=== PATIENT | male | born 1930 | race Caucasian/White ===

== ENCOUNTER 2017-04-15 08:45 | Outpatient (RCR) | payer MEDICARE ==
[~2017-04-15 08:45] MED LIST: ASPI-757 PO; ASPI81TA94 PO; CEPH-13 PO; CET10 PO; CLOP75TA PO; COUMADIN; DICY10CA11 PO; DILT300C41 PO; DILT300T11 PO; DOC100 PO; DOXY50SY2 PO; HYDR-385 PO; HYDR-393 PO; HYDROCODONE; HYDROCODONE PO; ISOS30TA PO; LOR5 PO; LOR5/325 PO; LORTAB 10/325MG PO; MELO-205 PO; METH5 PO; METO25TA91 PO; OMEP-125 PO; OMEP40CA48 PO; ONDA4TAB PO; OXYC-865 PO; PANT40TA65 PO; PHENA200 PO; PRAV40TA78 PO; RANI-320 PO; RANI-324 PO; TRA50 PO; TRAM-420 PO
[2017-04-15 09:58] LABS: INR 1.09
[2017-04-16] VITALS (7 sets, daily range): BP systolic 115–151; BP diastolic 63–93
[2017-04-16] MEDS ORDERED: IOPAMIDOL 20 ML VIAL IT ONE (09:01)
[2017-04-16] MEDS ORDERED: NS 0.9% 20 ML SDV 20 ML ONE (09:07)
--- NOTE | 2017-04-16 12:08 | RADIOLOGY IMAGING REPORT ---
FACILITY: [facility] PATIENT NAME: Abhijit Young : 1930 MR: [id number] V: [id number] EXAM DATE: ORDERING PHYSICIAN: DESTIN BYRNE TECHNOLOGIST: Location: [facility] - [place] Patient: Abhijit Young : 1930 Visit/Account:[id number] Date of Sevice: 04/16/2017 EXAMINATION: Lumbar spine CT myelogram HISTORY: Degenerative disc disease. COMPARISON: Coronal lumbar spine CT reformatted dated 12/05/2015. TECHNIQUE: Axial CT of the lumbar spine after the administration of intrathecal contrast material. Sagittal and coronal reformats. One of the following dose optimization techniques was utilized in the performance of this exam: Autom ated exposure control; adjustment of the mA and/or kV according to the patient's size; or use of an i terative reconstruction technique. Specific details can be referenced in the facility's radiology C T exam operational policy. CONTRAST: Please see procedural note for contrast details. FINDINGS: Alignment: Mild convex rightward curvature centered at L2. 5 mm of right lateral listhesis of L3 over L4. 1 to 2 mm of retrolisthesis of L1 over L2. 3 to 4 mm of retrolisthesis of L3 over L4 and L4 over L5. Bilateral L5 pars defects with 1 cm of anterior listhesis of L5 over S1. Vertebral bodies: Degenerative endplate changes at multiple levels. Normal vertebral body height. Posterior elements: Multilevel facet hypertrophy. Bilateral L5 pars defects. Left L4-L5 and L5-S1 hem ilaminectomy. Hardware: None. Soft tissues: Negative. Visualized retroperitoneal / abdominal structures: Partially imaged 3.3 cm posterior left renal cyst. Severe aortoiliac calcification without aneurysm. Small calcified granuloma in the right lung base. Disc Spaces: T11-T12: Mild circumferential disc bulge and moderate facet hypertrophy. No significant stenosis. T12-L1: Mild circumferential disc bulge and moderate facet hypertrophy. No significant stenosis. L1-2: Moderate to severe disc height loss. Grade 1 retrolisthesis. Mild circumferential disc osteophy te complex. Mild to moderate facet hypertrophy. No significant spinal canal stenosis. Moderate bilate ral neural foraminal stenosis. L2-3: Moderate to severe disc height loss. Mild circumferential disc osteophyte complex. Moderate fac et hypertrophy and ligamentum flavum thickening. Mild to moderate spinal canal stenosis. Moderate birdie ateral neural foraminal stenosis. L3-4: Severe disc height loss. Grade 1 retrolisthesis. Mild circumferential disc osteophyte complex. Moderate facet hypertrophy and ligamentum flavum thickening. Mild to moderate spinal canal stenosis, most severely affecting the left lateral recess. Moderate right and severe left neural foraminal sten osis. L4-5: Severe disc height loss. Grade 1 retrolisthesis. Mild circumferential disc osteophyte complex. Moderate facet hypertrophy. No significant spinal canal stenosis. Severe bilateral neural foraminal s tenosis. L5-S1: Bilateral L5 pars defects with 1 cm of anterior listhesis. Severe disc height loss. Moderate f acet hypertrophy. No significant spinal canal stenosis. Severe bilateral neural foraminal stenosis. IMPRESSION: Multilevel degenerative disc disease and facet hypertrophy with multiple alignment abnorm alities and multilevel spinal canal and neural foraminal stenosis. Bilateral L5 pars defects. Please see above report for level by level description. Report Dictated By: Serge Pena MD at 04/16/2017 11:49 AM Report E-Signed By: Serge Pena MD at 04/16/2017 12:04 PM WSN:[email or web address]
--- NOTE | 2017-04-16 16:54 | RADIOLOGY IMAGING REPORT ---
FACILITY: [facility] - [place] PATIENT NAME: Abhijit Young : 1930 MR: [id number] V: [id number] EXAM DATE: ORDERING PHYSICIAN: DESTIN BYRNE TECHNOLOGIST: [place] [facility] [place]: Abhijit Young : 1930 Visit/Account:[id number] Date of Sevice: 04/16/2017 Exam type: MYELOGRAM LUMBAR History: Lumbar stenosis Comparison: CT lumbar spine December 05, 2015 . Findings: Informed consent was obtained. The patient was placed prone on the fluoroscopy table. The patient's back was prepped and draped in usual sterile fashion. Local anesthesia was accomplished with 1% lid ocaine. Under fluoroscopic guidance a 22-gauge spinal needle was advanced percutaneously into the po sterior aspect of the thecal sac at L4-5. Approximately 10 mL of Isovue-200 M was instilled into the thecal sac under fluoroscopic guidance. Prominent extradural defects were identified along the vent ral aspect of the thecal sac from T12 to S1. Please see today's CT of the lumbar spine post myelogra m for additional details. The fluoroscopy dose area product was 756.96 micro-Palm per meter squared IMPRESSION: 1. Successful fluoroscopically guided lumbar myelogram Report Dictated By: Taylor Aguirre MD at 04/16/2017 4:46 PM Report E-Signed By: Taylor Aguirre MD at 04/16/2017 4:51 PM WSN:[email or web address]
== END 2017-05-20 ==
LOC: CT 08:45 → EDSTATUS 04-16 10:00
PROVIDERS: ATTEND Orthopaedic Surgery
DX: Z01.812 Encounter for preprocedural laboratory examination (principal); Z01.818 Encounter for other preprocedural examination; M48.061 Spinal stenosis, lumbar region without neurogenic claudication; M51.36 Other intervertebral disc degeneration, lumbar region; M51.34 Other intervertebral disc degeneration, thoracic region
CPT/HCPCS: 36415; 72132; 72265; 82565; 85049; 85610; 85730; J7050; Q9966

== ENCOUNTER → 2017-05-14 | Outpatient (REF) | payer MEDICARE | LOC: ZZSENDIN 17:10 | PROVIDERS: ATTEND Family Medicine | DX: R19.7 Diarrhea, unspecified (principal) | CPT/HCPCS: 85651 ==

== ENCOUNTER 2017-06-12 14:27 | Outpatient (RCR) | payer MEDICARE ==
[2017-06-13] MEDS ORDERED: IOPAMIDOL 76% 75 ML INFUS BTL 75 ML ONE (09:37)
--- NOTE | 2017-06-13 11:05 | RADIOLOGY IMAGING REPORT ---
FACILITY: [facility] PATIENT NAME: Abhijit Young : 1930 MR: [id number] V: [id number] EXAM DATE: ORDERING PHYSICIAN: URIEL PHILLIPS TECHNOLOGIST: Location: [facility] Patient: Abhijit Young : 1930 Visit/Account:[id number] Date of Sevice: 06/13/2017 ABDOMEN/PELVIS WITH CONTRAST HISTORY: Diarrhea, abdomen pain x6 months TECHNIQUE: Following administration of IV contrast contiguous axial images acquired through the abdom en/pelvis. Coronal and sagittal reformatting also performed. Dose Lowering Technique One of the following dose optimization techniques was utilized in the performance of this exam: Autom ated exposure control; adjustment of the mA and/or kV according to the patient's size; or use of an i terative reconstruction technique. Specific details can be referenced in the facility's radiology C T exam operational policy. CONTRAST: 75 mL Isovue-370 COMPARISON: None. FINDINGS: Visualized lung bases: There is a small amount of focal airspace consolidation in the inferior right middle lobe which could represent scarring or atelectasis. Coarse septal thickening is seen in both lower lobes most likely chronic. There is a 5 mm calcified granuloma in the right lower lobe . Coronary artery calcifications Hepatobiliary: Gallbladder appears mildly distended. Mild intrahepatic biliary prominence in the le ft hepatic lobe Spleen: Negative. Adrenals: Negative. Pancreas: Atrophic Kidneys ureters or bladder: There is a 3.8 cm cyst in the posterior aspect of the left kidney contain ing the thin partially calcified septation. The bladder is decompressed Genitalia: There appears to been a prostatectomy GI: There is moderate gaseous distention of the transverse colon. Moderate amount of stool is ident ified in the right-sided the colon. There is no evidence of bowel obstruction. Vessels/spaces/nodes: There are moderate vascular calcifications throughout the abdomen and pelvis. Bones/soft tissues: There are extensive spondylotic changes in the lumbar spine including a grade 1 anterior listhesis of L5 with respect S1 and postsurgical changes from a left hemilaminectomy at L5 Additional findings: None pertinent. IMPRESSION: There is a small amount of focal airspace consolidation in the inferior right middle lobe which could represent scarring versus atelectasis Coarse septal thickening in the lower lobes likely chronic Gallbladder is mildly distended which could be related to a fasting state although clinical correlati on needed. There is mild intrahepatic biliary prominence in the left hepatic lobe Atrophic pancreas 3.8 cm cyst posterior aspect left kidney containing a thin partially calcified septation. 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 Report Dictated By: Taylor Aguirre MD at 06/13/2017 10:38 AM Report E-Signed By: Taylor Aguirre MD at 06/13/2017 11:02 AM WSN:[email or web address]
== END 2017-06-13 18:00 | disposition home or self-care (01) ==
LOC: CT 14:27 → EDSTATUS 06-13 14:27 → CT 06-13 18:00
PROVIDERS: ATTEND Family Medicine
DX: K86.89 Other specified diseases of pancreas (principal); M47.896 Other spondylosis, lumbar region; I70.90 Unspecified atherosclerosis; K63.89 Other specified diseases of intestine; K82.8 Other specified diseases of gallbladder
CPT/HCPCS: 74177; 87269; 87324; 87449; Q9967

== ENCOUNTER → 2017-09-15 | Outpatient (CLI) | payer MEDICARE ==
[~2017-09-15] MED LIST changes: -RANI-324 PO; +RANI-366 PO
== END ==
LOC: LAB 07:23
PROVIDERS: ATTEND Internal Medicine Cardiovascular Disease
DX: I25.10 Atherosclerotic heart disease of native coronary artery without angina pectoris (principal); E78.00 Pure hypercholesterolemia, unspecified
CPT/HCPCS: 36415; 82465; 83718; 84478

== ENCOUNTER → 2018-02-24 | Outpatient (CLI) | payer MEDICARE ==
[~2018-02-24] MED LIST changes: -DILT300C41 PO; +DILT300C6 PO
== END ==
LOC: LAB 10:07
PROVIDERS: ATTEND Clinical Nurse Specialist Family Health
DX: Z79.899 Other long term (current) drug therapy (principal)
CPT/HCPCS: 36415; 82040; 82247; 82310; 82374; 82435; 82565; 82947; 84075; 84132; 84155; 84295; 84450; 84460; 84520

== ENCOUNTER → 2018-04-03 | Outpatient (CLI) | payer MEDICARE | LOC: LAB 15:13 | PROVIDERS: ATTEND Dermatology MOHS-Micrographic Surgery | DX: H60.392 Other infective otitis externa, left ear (principal); B96.89 Other specified bacterial agents as the cause of diseases classified elsewhere | CPT/HCPCS: 87070; 87077; 87186; 87205 ==

== ENCOUNTER 2018-06-28 19:58 | Emergency (ER) | payer MEDICARE ==
--- NOTE | 2018-06-28 20:15 | ER Report ---
History and Physical Time Seen By MD: 20:15 Hx. of Stated Complaint: HAS HAD DIARRHEA SINCE . TAKING PEPTO ALL WEKK, TODAY SWITCHED TO IMMODIUM. NOTHING WORKING, IT'S GETTING WORSE. PT STATES THE DIARRHEA IS BLACK AND IT STARTED OUT BLACK BEFORE THE PEPTO HPI/ROS CHIEF COMPLAINT: Diarrhea HISTORY OF PRESENT ILLNESS: This is an 88-year-old male. He has been having diarrhea this week starting Saturday. He tried taking Pepto-Bismol and today switched to some Imodium but nothing really is working. Multiple episodes. Block color to the diarrhea, and he states that it was a black color before using the Pepto. Denies any fevers or chills. He is having abdominal discomfort but no severe pain. No fevers or chills. He is eating and drinking without problem, having some nausea but no vomiting. Denies shortness breath or chest pain. Allergies: Coded Allergies: ciprofloxacin (Verified Allergy, Intermediate, 06/28/18) naproxen (Verified Allergy, Intermediate, LOOPY, 07/03/16) naproxen sodium (Verified Adverse Reaction, Mild, knocked him out, 07/03/16) Home Meds Active Scripts Diphenoxylate Hcl/Atropine (LOMOTIL TABLET) 1 Each Tablet, 1 EACH PO QID PRN for DIARRHEA, #20 TAB 0 Refills Prov:CARLOS OBRIEN MD 06/28/18 Reported Medications Metoprolol Tartrate (METOPROLOL TARTRATE) 50 Mg Tab, 1 TAB PO BID, TAB 06/28/18 Hydroxyzine Hcl (HYDROXYZINE HCL) 10 Mg/5 Ml Syrup, 10 MG PO 06/28/18 [Lortab 10/325MG] No Conflict Check, 1-2 TAB PO Q4-6H PRN for PAIN, #60 07/11/16 [Hydrocodone] No Conflict Check 07/11/16 Acetaminophen/Hydrocodone (HYDROCODON-ACETAMINOPHN 10-325) 1 Each Tab, 5 TAB PO DAILY, TAB 1 tab PO in the Morning, 2 Tab PO 1200, 1 tab PO @1700, 1 tab PO HS 07/03/16 Pantoprazole Sodium (PANTOPRAZOLE SODIUM) 40 Mg Tablet.dr, 40 MG PO QDAY, TAB.SR 07/03/16 Methadone Hcl (METHADONE HCL) 5 Mg Tab, 5 MG PO 0300 daily, TAB 07/03/16 Ranitidine Hcl (ZANTAC) 150 Mg Tablet, 150 MG PO EVENINGS, TAB 07/03/16 Dicyclomine Hcl (DICYCLOMINE HCL) 10 Mg Capsule, 10 MG PO HS, CAPSULE 07/03/16 Aspirin (ASPIRIN) 325 Mg Tablet, 0.5 TAB PO DAILY, TAB 03/24/14 Isosorbide Mononitrate (ISOSORBIDE MONONITRATE) 30 Mg Tab.er.24h, 30 MG PO DAILY 12/20/12 Cetirizine Hcl (Zyrtec) 10 Mg Tab, 10 MG PO QDAY 05/17/11 Discontinued Reported Medications Meloxicam (MELOXICAM) 7.5 Mg Tablet, 7.5 MG PO DAILY daily @ 0000 07/03/16 Pravastatin Sodium (PRAVASTATIN SODIUM) 40 Mg Tablet, 40 MG PO HS 03/24/14 Diltiazem Hcl (DILTIAZEM 24HR ER) 300 Mg Cap.er.24h, 300 MG PO 03/24/14 Reviewed Nurses Notes: Yes Hx Smoking: No Smoking Status: Never Smoker Exposure to Second Hand Smoke?: No Hx Substance Use Disorder: No Hx Alcohol Use: Yes Constitutional Vital Sign - Last 24 Hours 06/28/18 06/28/18 06/28/18 06/28/18 19:58 20:05 20:06 20:28 Temp 97.5 Pulse ??? 69 67 Resp 14 B/P (MAP) 168/105 168/105 (126) Pulse Ox 91 89 O2 Delivery Room Air 06/28/18 06/28/18 06/28/18 06/28/18 20:30 20:58 21:00 21:28 Pulse 63 69 B/P (MAP) 128/78 (95) 126/90 (102) Pulse Ox 93 88 06/28/18 06/28/18 06/28/18 06/28/18 21:30 22:00 22:30 22:35 Pulse ??? B/P (MAP) 128/84 (99) 143/83 (103) 162/103 (122) 06/28/18 06/28/18 06/28/18 23:00 23:30 23:35 Pulse ??? B/P (MAP) 168/104 (125) 153/104 (120) Intake and Output0 06/28/18 06/28/18 06/29/18 14:59 22:59 06:59 Intake Total 1000 ml Balance 1000 ml Physical Exam General Appearance: The patient is alert. No acute distress. Eyes: Pupils are equal, round. No pallor, injection or icterus. ENT: Mucous membranes are moist. Respiratory: Lungs are clear to auscultation. Cardiovascular: Regular rate and rhythm. No murmurs, gallops or rubs. Normal peripheral perfusion. No edema. Gastrointestinal: Abdomen is soft, diffuse discomfort and no focal tenderness. Slightly distended but soft. No rebound or guarding. Hyperactive bowel sounds. No costovertebral angle tenderness with percussion. Neurological: Alert and oriented x3. Skin: Warm and dry. DIFFERENTIAL DIAGNOSIS: After history and physical exam, differential diagnosis was considered for patient with diarrhea that is black in color concerning for possible GI bleeding. Also consider a colitis, food poisoning, Clostridium difficile, or gastroenteritis from nonspecific virus. Medical Decision Making Data Points Result Diagram: 06/28/18202206/28/182022 Laboratory Hematology Test 06/28/18 20:10 06/28/18 20:23 Urine Color Yellow Urine Clarity Clear Urine pH 5.0 pH (4.8-9.5) Urine Specific [place] 1.023 Urine Protein 30 mg/dL (NEGATIVE) Urine Glucose (UA) Negative mg/dL (NEGATIVE) Urine Ketones Negative mg/dL (NEGATIVE) Urine Blood Moderate (NEGATIVE) Urine Nitrite Negative (NEGATIVE) Urine Bilirubin Negative (NEGATIVE) Urine Urobilinogen Negative mg/dL (0.2-1.9) Urine Leukocyte Esterase Negative (NEGATIVE) Urine RBC 10 /HPF (0-2/HPF) Urine WBC 2 /HPF (0-5/HPF) Urine Squamous Epithelial Cells Moderate /LPF (</=FEW) Urine Bacteria Negative /HPF (NONE-FEW) Urine Hyaline Casts Many /LPF (NONE-FEW) Urine Mucus Few /HPF (NONE-FEW) Stool Occult Blood (IFOB) Negative (NEGATIVE) Stool Leukocytes, Qualitative Negative Clostridium Difficile Toxin A & B Negative Clostridium difficile Antigen Negative Red Blood Count 5.35 M/uL (4.00-5.60) Mean Corpuscular Volume 90.6 fL (80.0-96.0) Mean Corpuscular Hemoglobin 30.0 pg (26.0-33.0) Mean Corpuscular Hemoglobin Concent 33.1 g/dL (32.0-36.0) Red Cell Distribution Width 14.8 % (11.5-14.5) Mean Platelet Volume 8.1 fL (7.2-11.1) Neutrophils (%) (Auto) 55.9 % (39.4-72.5) Lymphocytes (%) (Auto) 29.9 % (17.6-49.6) Monocytes (%) (Auto) 13.0 % (4.1-12.4) Eosinophils (%) (Auto) 0.9 % (0.4-6.7) Basophils (%) (Auto) 0.3 % (0.3-1.4) Nucleated RBC Relative Count (auto) 0.1 /100WBC Neutrophils # (Auto) 2.9 K/uL (2.0-7.4) Lymphocytes # (Auto) 1.5 K/uL (1.3-3.6) Monocytes # (Auto) 0.7 K/uL (0.3-1.0) Eosinophils # (Auto) 0.0 K/uL (0.0-0.5) Basophils # (Auto) 0.0 K/uL (0.0-0.1) Nucleated RBC Absolute Count (auto) 0.01 K/uL Prothrombin Time 13.8 seconds (12.0-14.4) Prothromb Time International Ratio 1.05 Activated Partial Thromboplast Time 37 seconds (23-35) Sodium Level 136 mmol/L (137-145) Potassium Level 4.2 mmol/L (3.5-5.0) Chloride Level 103 mmol/L (98-107) Carbon Dioxide Level 22 mmol/L (22-30) Blood Urea Nitrogen 17 mg/dl (9-21) Creatinine 1.40 mg/dl (0.66-1.25) Glomerular Filtration Rate Calc 47.7 Random Glucose 86 mg/dl (75-110) Calcium Level 9.2 mg/dl (8.4-10.2) Total Bilirubin 0.6 mg/dl (0.2-1.3) Aspartate Amino Transf (AST/SGOT) 36 U/L (0-35) Alanine Aminotransferase (ALT/SGPT) 26 U/L (0-56) Alkaline Phosphatase 67 U/L (0-126) Total Protein 7.8 g/dl (6.3-8.2) Albumin 4.5 g/dl (3.5-5.0) Amylase Level 98 U/L (0-110) Lipase 68 U/L (23-300) Chemistry Test 06/28/18 20:10 06/28/18 20:23 Urine Color Yellow Urine Clarity Clear Urine pH 5.0 pH (4.8-9.5) Urine Specific [place] 1.023 Urine Protein 30 mg/dL (NEGATIVE) Urine Glucose (UA) Negative mg/dL (NEGATIVE) Urine Ketones Negative mg/dL (NEGATIVE) Urine Blood Moderate (NEGATIVE) Urine Nitrite Negative (NEGATIVE) Urine Bilirubin Negative (NEGATIVE) Urine Urobilinogen Negative mg/dL (0.2-1.9) Urine Leukocyte Esterase Negative (NEGATIVE) Urine RBC 10 /HPF (0-2/HPF) Urine WBC 2 /HPF (0-5/HPF) Urine Squamous Epithelial Cells Moderate /LPF (</=FEW) Urine Bacteria Negative /HPF (NONE-FEW) Urine Hyaline Casts Many /LPF (NONE-FEW) Urine Mucus Few /HPF (NONE-FEW) Stool Occult Blood (IFOB) Negative (NEGATIVE) Stool Leukocytes, Qualitative Negative Clostridium Difficile Toxin A & B Negative Clostridium difficile Antigen Negative White Blood Count 5.2 k/uL (4.5-11.0) Red Blood Count 5.35 M/uL (4.00-5.60) Hemoglobin 16.1 g/dL (14.0-18.0) Hematocrit 48.5 % (42.0-52.0) Mean Corpuscular Volume 90.6 fL (80.0-96.0) Mean Corpuscular Hemoglobin 30.0 pg (26.0-33.0) Mean Corpuscular Hemoglobin Concent 33.1 g/dL (32.0-36.0) Red Cell Distribution Width 14.8 % (11.5-14.5) Platelet Count 290 K/uL (150-450) Mean Platelet Volume 8.1 fL (7.2-11.1) Neutrophils (%) (Auto) 55.9 % (39.4-72.5) Lymphocytes (%) (Auto) 29.9 % (17.6-49.6) Monocytes (%) (Auto) 13.0 % (4.1-12.4) Eosinophils (%) (Auto) 0.9 % (0.4-6.7) Basophils (%) (Auto) 0.3 % (0.3-1.4) Nucleated RBC Relative Count (auto) 0.1 /100WBC Neutrophils # (Auto) 2.9 K/uL (2.0-7.4) Lymphocytes # (Auto) 1.5 K/uL (1.3-3.6) Monocytes # (Auto) 0.7 K/uL (0.3-1.0) Eosinophils # (Auto) 0.0 K/uL (0.0-0.5) Basophils # (Auto) 0.0 K/uL (0.0-0.1) Nucleated RBC Absolute Count (auto) 0.01 K/uL Prothrombin Time 13.8 seconds (12.0-14.4) Prothromb Time International Ratio 1.05 Activated Partial Thromboplast Time 37 seconds (23-35) Glomerular Filtration Rate Calc 47.7 Calcium Level 9.2 mg/dl (8.4-10.2) Total Bilirubin 0.6 mg/dl (0.2-1.3) Aspartate Amino Transf (AST/SGOT) 36 U/L (0-35) Alanine Aminotransferase (ALT/SGPT) 26 U/L (0-56) Alkaline Phosphatase 67 U/L (0-126) Total Protein 7.8 g/dl (6.3-8.2) Albumin 4.5 g/dl (3.5-5.0) Amylase Level 98 U/L (0-110) Lipase 68 U/L (23-300) Coagulation Test 06/28/18 20:23 Prothrombin Time 13.8 seconds Prothromb Time International Ratio 1.05 Activated Partial Thromboplast Time 37 seconds Urinalysis Test 06/28/18 20:10 Urine Color Yellow Urine Clarity Clear Urine pH 5.0 pH (4.8-9.5) Urine Specific [place] 1.023 Urine Protein 30 mg/dL (NEGATIVE) Urine Glucose (UA) Negative mg/dL (NEGATIVE) Urine Ketones Negative mg/dL (NEGATIVE) Urine Blood Moderate (NEGATIVE) Urine Nitrite Negative (NEGATIVE) Urine Bilirubin Negative (NEGATIVE) Urine Urobilinogen Negative mg/dL (0.2-1.9) Urine Leukocyte Esterase Negative (NEGATIVE) Urine RBC 10 /HPF (0-2/HPF) Urine WBC 2 /HPF (0-5/HPF) Urine Squamous Epithelial Cells Moderate /LPF (</=FEW) Urine Bacteria Negative /HPF (NONE-FEW) Urine Hyaline Casts Many /LPF (NONE-FEW) Urine Mucus Few /HPF (NONE-FEW) EKG/Imaging Imaging OBSTRUCTION SERIES: Indication: Abdominal pain. Technique: Supine and erect views of the abdomen and a frontal view of the chest were obtained. Comparison: 10/19/2014 Findings: There are multiple moderately dilated loops of small bowel. The erect film demonstrates scattered air fluid levels. The colon does not appear dilated. There is no evidence of free air under the diaphragm. The pattern is nonspecific and may represent mild ileus or early mechanical obstruction. There are multiple surgical clips in the pelvis, similar to the prior study. No suspicious calcifications are identified. 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 No acute skeletal deformity is clearly identified. The lungs are well expanded and clear. No focal parenchymal or pleural abnormality is identified. The heart and mediastinal contours are within normal limits. A left shoulder prosthesis is evident. The skeletal structures of the thorax are otherwise unremarkable. IMPRESSION: Nonspecific small bowel gas pattern, which may represent mild ileus or early mechanical obstruction. Report Dictated By: Hung Griffin MD at 06/28/2018 9:[address] of the abdomen and pelvis with contrast: Indication: Abdominal pain and diarrhea. Technique: Helical CT was performed through the abdomen and pelvis following IV contrast enhancement with 75 cc of Isovue-370. Multiplanar reconstructions are reviewed. One of the following dose optimization techniques was utilized in the performance of this exam: Automated exposure control; adjustment of the mA and/or kV according to the patient's size; or use of an iterative reconstruction technique. Specific details can be referenced in the facility's radiology CT exam operational policy. Comparison: 06/13/2017 Lower lung gonzalez: There is mild parenchymal fibrosis. No acute parenchymal or pleural process is identified. Liver: Normal in size, shape, and density. The venous structures appear unremarkable. Gallbladder/biliary tree: The gallbladder is normal in size and homogeneous in density. The bile ducts are not dilated. Pancreas: Atrophic, but otherwise unremarkable. There are no signs of peripancreatic inflammation or fluid. Spleen: Normal in size, shape, and density. Adrenal glands: Within normal limits. Kidneys/urinary bladder: A cortical cyst at the lower pole of the left kidney is not significantly changed. The kidneys are otherwise unremarkable. There are no signs of urinary tract calculus or obstruction. The bladder is not well visualized. Intestinal structures: The stomach appears relatively distended. There are multiple mildly dilated and fluid-filled loops of small bowel throughout the abdomen and pelvis. The colon is unremarkable, as visualized. No focal inflammatory changes are clearly identified around the intestinal structures. The pattern is nonspecific. No obstructing process is clearly identified in the abdomen or pelvis. Pelvis: Multiple surgical clips are present in the pelvis, which may be related to prostate surgery. There are no signs of soft tissue mass, lymph node enlargement, fluid collection, or inflammatory changes in the pelvis. Aorta and vascular structures: There are stable atherosclerotic changes in the aorta and iliac arteries. There are no signs of aneurysm. Ascites or fluid collections: None seen. Skeletal structures: There are chronic degenerative arthritic changes in the spine and bilateral hips. No acute skeletal deformity is clearly identified. Impression: There are multiple moderately dilated and fluid-filled loops of small bowel throughout the abdomen and pelvis. The colon appears unremarkable. The pattern is nonspecific. No obstructing process is clearly identified in the abdomen or pelvis. Report Dictated By: Hung Griffin MD at 06/28/2018 10:27 PM ED Course/Re-evaluation Clinical Indication for ER IV: Hydration, IV Access ED Course IV started with blood work obtained. Also got a urine sample and stool samples. No gross blood but diarrheas a dark color. Patient was given a liter of normal saline through the IV. Basic x-ray shows multiple air-fluid levels. CT scan obtained with nonspecific fluid in the small intestine, no sign of obstruction or colitis. Stool sample was negative for blood and C. difficile. Culture pending. This looks like it's likely a nonspecific viral enteritis, reviewed this with the patient. We will start him on some Lomotil have him continue with fluids and follow-up with his primary care doctor next week. Consideration for further evaluation with endoscopy based on his primary care doctor's evaluation. Decision to Disposition Date: Jun 28, 2018 Decision to Disposition Time: 23:38 Depart Departure Latest Vital Signs Vital Signs Date Time Temp Pulse Resp B/P (MAP) Pulse Ox O2 Delivery O2 Flow Rate FiO2 06/28/18 23:35 ??? 06/28/18 23:30 153/104 (120) 06/28/18 21:28 88 4/20/19 20:05 97.5 14 Room Air Impression: Primary Impression: Enteritis Condition: Improved Disposition: HOME OR SELF-CARE Referrals: URIEL PHILLIPS MD (PCP) New Scripts Diphenoxylate Hcl/Atropine (LOMOTIL TABLET) 1 Each Tablet 1 EACH PO QID PRN for DIARRHEA, #20 TAB 0 Refills Prov: CARLOS OBRIEN MD 06/28/18 Patient Instructions: Enteritis (ED) Additional Instructions: Rest and increase fluid intake. Take Lomotil tablet every 6 hours as needed for diarrhea. Drink plenty of fluids to avoid dehydration. Stop the Pepto Bismol. Follow-up with Dr. Phillips this week. CARLOS OBRIEN MD Jun 28, 2018 20:15
[2018-06-28] MEDS ORDERED: NS(*) 0.9% 1000 ML BAG 1,000 ML IV ONE (20:19)
[2018-06-28] MEDS ORDERED: METO-253 PO (20:22)
[2018-06-28] MEDS ORDERED: HYDR10SY PO (20:22)
[2018-06-28 20:32] LABS: PLATELET COUNT, AUTOMATED 290 K/uL (150-450)
[2018-06-28 20:48] LABS: INR 1.05
[2018-06-28] MEDS ORDERED: IOPAMIDOL 76% 150 ML INFUS BTL 150 ML ONE (21:28)
--- NOTE | 2018-06-28 21:48 | RADIOLOGY IMAGING REPORT ---
FACILITY: [facility] PATIENT NAME: Abhijit Young : 1930 MR: [id number] V: [id number] EXAM DATE: ORDERING PHYSICIAN: CARLOS OBRIEN TECHNOLOGIST: Location: [facility] [place] Patient: Abhijit Young : 1930 Visit/Account:[id number] Date of Sevice: 06/28/2018 OBSTRUCTION SERIES: Indication: Abdominal pain. Technique: Supine and erect views of the abdomen and a frontal view of the chest were obtained. Comparison: 10/19/2014 Findings: There are multiple moderately dilated loops of small bowel. The erect film demonstrates sca ttered air fluid levels. The colon does not appear dilated. There is no evidence of free air under th e diaphragm. The pattern is nonspecific and may represent mild ileus or early mechanical obstruction. There are multiple surgical clips in the pelvis, similar to the prior study. No suspicious calcificat ions are identified. 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 No acute s keletal deformity is clearly identified. The lungs are well expanded and clear. No focal parenchymal or pleural abnormality is identified. The heart and mediastinal contours are within normal limits. A left shoulder prosthesis is evident. The skeletal structures of the thorax are otherwise unremarkable. IMPRESSION: Nonspecific small bowel gas pattern, which may represent mild ileus or early mechanical o bstruction. Report Dictated By: Hung Griffin MD at 06/28/2018 9:40 PM Report E-Signed By: Hung Griffin MD at 06/28/2018 9:44 PM WSN:[id number]
--- NOTE | 2018-06-28 22:42 | RADIOLOGY IMAGING REPORT ---
FACILITY: PATIENT NAME: Abhijit Young : 1930 MR: [id number] V: [id number] EXAM DATE: ORDERING PHYSICIAN: CARLOS OBRIEN TECHNOLOGIST: Location: [facility] Patient: Abhijit Young : 1930 Visit/Account:[id number] Date of Sevice: 06/28/2018 CT of the abdomen and pelvis with contrast: Indication: Abdominal pain and diarrhea. Technique: Helical CT was performed through the abdomen and pelvis following IV contrast enhancement with 75 cc of Isovue-370. Multiplanar reconstructions are reviewed. One of the following dose optimization techniques was utilized in the performance of this exam: Autom ated exposure control; adjustment of the mA and/or kV according to the patient's size; or use of an i terative reconstruction technique. Specific details can be referenced in the facility's radiology CT exam operational policy. Comparison: 06/13/2017 Lower lung gonzalez: There is mild parenchymal fibrosis. No acute parenchymal or pleural process is neymar ntified. Liver: Normal in size, shape, and density. The venous structures appear unremarkable. Gallbladder/biliary tree: The gallbladder is normal in size and homogeneous in density. The bile duct s are not dilated. Pancreas: Atrophic, but otherwise unremarkable. There are no signs of peripancreatic inflammation or fluid. Spleen: Normal in size, shape, and density. Adrenal glands: Within normal limits. Kidneys/urinary bladder: A cortical cyst at the lower pole of the left kidney is not significantly ch anged. The kidneys are otherwise unremarkable. There are no signs of urinary tract calculus or obstruction. The bladder is not well visualized. Intestinal structures: The stomach appears relatively distended. There are multiple mildly dilated an d fluid-filled loops of small bowel throughout the abdomen and pelvis. The colon is unremarkable, as visualized. No focal inflammatory changes are clearly identified around the intestinal structures. Th e pattern is nonspecific. No obstructing process is clearly identified in the abdomen or pelvis. Pelvis: Multiple surgical clips are present in the pelvis, which may be related to prostate surgery. There are no signs of soft tissue mass, lymph node enlargement, fluid collection, or inflammatory roman nges in the pelvis. Aorta and vascular structures: There are stable atherosclerotic changes in the aorta and iliac arteri es. There are no signs of aneurysm. Ascites or fluid collections: None seen. Skeletal structures: There are chronic degenerative arthritic changes in the spine and bilateral hips . No acute skeletal deformity is clearly identified. Impression: There are multiple moderately dilated and fluid-filled loops of small bowel throughout th e abdomen and pelvis. The colon appears unremarkable. The pattern is nonspecific. No obstructing proc ess is clearly identified in the abdomen or pelvis. Report Dictated By: Hung Griffin MD at 06/28/2018 10:27 PM Report E-Signed By: Hung Griffin MD at 06/28/2018 10:37 PM WSN:[id number]
[2018-06-28 23:30] VITALS: BP 153/104
[2018-06-28] MEDS ORDERED: DIPH-1 PO (23:39)
[2018-06-28] MEDS ORDERED: DIPHENOX/ATROPINE 2.5-0.025MG PO ONE ×2 (23:40→23:55)
== END 2018-06-28 23:50 | disposition home or self-care (01) ==
LOC: ER 20:07
DX: K52.9 Noninfective gastroenteritis and colitis, unspecified (principal)
CPT/HCPCS: 74022; 74177; 81001; 82150; 82274; 83630; 83690; 85025; 85610; 85730; 87045; 87177; 87324; 87449; 96360; 96361; 99284; A9270; J7030; Q9967; 82040; 82247; 82310; 82374; 82435; 82565; 82947; 84075; 84132; 84155; 84295; 84450; 84460; 84520

== ENCOUNTER 2018-08-07 16:23 | Emergency (ER) | payer MEDICARE ==
[~2018-08-07 16:23] MED LIST changes: +DIPH-1 PO; +HYDR10SY PO; +METO-253 PO; -OMEP-125 PO; +OMEP-126 PO; -RANI-366 PO; +RANI-54 PO
[2018-08-07] MEDS ORDERED: NS(*) 0.9% 1000 ML BAG 1,000 ML IV ONE (16:40)
--- NOTE | 2018-08-07 16:42 | ER Report ---
History and Physical Time Seen By MD: 16:41 (LYLE CARMICHAEL MD) Time Seen By MD: 18:00 (URVASHI MARTINES DO) HPI/ROS CHIEF COMPLAINT: Weakness HISTORY OF PRESENT ILLNESS: Patient is an 88-year-old male comes emergency Department today was out for a [place] is out [place] 10th of a mild started feeling a little bit dizzy and can a week history sat down for a little while didn't get much better suicidally down when he did somebody called 911 he said he had no chest pain or shortness of breath he wasn't nauseated however when he was picked up by family as opposed to 911 they put him in a truck drive him here he vomited once en route. Patient says he is eating and drinking normally says he has no vision or hearing changes she is denying any weakness of any extremity is denying chest pain or shortness of breath he says he has a little bit of nausea but does not think he is Bg at this point and has no additional complaints noted patient did not lose con sciousness and he did not pass out. REVIEW OF SYSTEMS: Respiratory: No cough, no dyspnea. Cardiovascular: No chest pain, no palpitations. Gastrointestinal: No vomiting, no abdominal pain. Musculoskeletal: No back pain. Remainder of the 14 system rev: Yes (LYLE CARMICHAEL MD) HPI/ROS Please see Dr. Carmichael's note (URVASHI MARTINES DO) Allergies: Coded Allergies: ciprofloxacin (Verified Allergy, Intermediate, 06/28/18) naproxen (Verified Allergy, Intermediate, LOOPY, 07/03/16) naproxen sodium (Verified Adverse Reaction, Mild, knocked him out, 07/03/16) Home Meds Active Scripts Diphenoxylate Hcl/Atropine (LOMOTIL TABLET) 1 Each Tablet, 1 EACH PO QID PRN for DIARRHEA, #20 TAB 0 Refills Prov:CARLOS OBRIEN MD 06/28/18 Reported Medications Metoprolol Tartrate (METOPROLOL TARTRATE) 50 Mg Tab, 1 TAB PO BID, TAB 06/28/18 Hydroxyzine Hcl (HYDROXYZINE HCL) 10 Mg/5 Ml Syrup, 10 MG PO 06/28/18 [Lortab 10/325MG] No Conflict Check, 1-2 TAB PO Q4-6H PRN for PAIN, #60 07/11/16 [Hydrocodone] No Conflict Check 07/11/16 Acetaminophen/Hydrocodone (HYDROCODON-ACETAMINOPHN 10-325) 1 Each Tab, 5 TAB PO DAILY, TAB 1 tab PO in the Morning, 2 Tab PO 1200, 1 tab PO @1700, 1 tab PO HS 07/03/16 Pantoprazole Sodium (PANTOPRAZOLE SODIUM) 40 Mg Tablet.dr, 40 MG PO QDAY, TAB.SR 07/03/16 Methadone Hcl (METHADONE HCL) 5 Mg Tab, 5 MG PO 0300 daily, TAB 07/03/16 Ranitidine Hcl (ZANTAC) 150 Mg Tablet, 150 MG PO EVENINGS, TAB 07/03/16 Dicyclomine Hcl (DICYCLOMINE HCL) 10 Mg Capsule, 10 MG PO HS, CAPSULE 07/03/16 Aspirin (ASPIRIN) 325 Mg Tablet, 0.5 TAB PO DAILY, TAB 03/24/14 Isosorbide Mononitrate (ISOSORBIDE MONONITRATE) 30 Mg Tab.er.24h, 30 MG PO DAILY 12/20/12 Cetirizine Hcl (Zyrtec) 10 Mg Tab, 10 MG PO QDAY 05/17/11 Reviewed Nurses Notes: Yes Old Medical Records Reviewed: Yes (LYLE CARMICHAEL MD) Hx Smoking: No Smoking Status: Never Smoker Exposure to Second Hand Smoke?: No Hx Substance Use Disorder: No Hx Alcohol Use: Yes (LYLE CARMICHAEL MD) Constitutional Vital Sign - Last 24 Hours 08/07/18 08/07/18 08/07/18 08/07/18 16:30 16:39 16:39 17:00 Temp 97.7 Pulse ??? 58 73 Resp 20 11 B/P (MAP) 152/93 (112) 141/107 (118) Pulse Ox 85 93 O2 Delivery Room Air 08/07/18 08/07/18 08/07/18 08/07/18 17:03 17:30 18:30 18:35 Pulse 68 66 65 Resp 18 12 19 B/P (MAP) 149/90 (109) 157/92 (113) Pulse Ox 78 82 O2 Flow Rate 3.0 08/07/18 08/07/18 19:00 19:05 Resp 16 B/P (MAP) 175/113 (133) Pulse Ox 72 (URVASHI MARTINES DO) Physical Exam General Appearance: The patient is alert, has no immediate need for airway protection and no current signs of toxicity. At baseline no apparent distress Eyes: Pupils equal and round no injection. Respiratory: Chest is non tender, lungs are clear to auscultation. Cardiac: regular rate and rhythm [ ] Gastrointestinal: Abdomen is soft and non tender, no masses, bowel sounds normal. Musculoskeletal: Neck: Neck is supple and non tender. Extremities have full range of motion and are non tender. Skin: No rashes or lesions. [ ] DIFFERENTIAL DIAGNOSIS: After history and physical exam differential diagnosis was considered for pulmonary embolus cardiac ischemia just went out to hypoglycemia infectious etiology weakness based on age (LYLE CARMICHAEL MD) Physical Exam Please see Dr. Carmichael's note (URVASHI MARTINES DO) Medical Decision Making Data Points Result Diagram: 08/07/18 1657 08/07/18 1657 Laboratory Hematology Test 08/07/18 16:57 08/07/18 17:38 08/07/18 18:54 Red Blood Count 4.22 M/uL (4.00-5.60) Mean Corpuscular Volume 92.5 fL (80.0-96.0) Mean Corpuscular Hemoglobin 30.5 pg (26.0-33.0) Mean Corpuscular Hemoglobin Concent 33.0 g/dL (32.0-36.0) Red Cell Distribution Width 14.7 % (11.5-14.5) Mean Platelet Volume 8.1 fL (7.2-11.1) Neutrophils (%) (Auto) 64.3 % (39.4-72.5) Lymphocytes (%) (Auto) 22.6 % (17.6-49.6) Monocytes (%) (Auto) 8.2 % (4.1-12.4) Eosinophils (%) (Auto) 3.0 % (0.4-6.7) Basophils (%) (Auto) 1.9 % (0.3-1.4) Nucleated RBC Relative Count (auto) 0.0 /100WBC Neutrophils # (Auto) 3.7 K/uL (2.0-7.4) Lymphocytes # (Auto) 1.3 K/uL (1.3-3.6) Monocytes # (Auto) 0.5 K/uL (0.3-1.0) Eosinophils # (Auto) 0.2 K/uL (0.0-0.5) Basophils # (Auto) 0.1 K/uL (0.0-0.1) Nucleated RBC Absolute Count (auto) 0.00 K/uL D-Dimer Quantitative (PE/DVT) 1.20 ug/ml (0-0.50) Sodium Level 144 mmol/L (137-145) Potassium Level 3.7 mmol/L (3.5-5.0) Chloride Level 105 mmol/L (98-107) Carbon Dioxide Level 25 mmol/L (22-30) Blood Urea Nitrogen 15 mg/dl (9-21) Creatinine 1.30 mg/dl (0.66-1.25) Glomerular Filtration Rate Calc 52.0 Random Glucose 123 mg/dl (75-110) Calcium Level 8.6 mg/dl (8.4-10.2) Total Bilirubin 0.4 mg/dl (0.2-1.3) Aspartate Amino Transf (AST/SGOT) 24 U/L (0-35) Alanine Aminotransferase (ALT/SGPT) 27 U/L (0-56) Alkaline Phosphatase 77 U/L (0-126) Troponin I < 0.012 ng/ml Total Protein 6.5 g/dl (6.3-8.2) Albumin 3.7 g/dl (3.5-5.0) Lactate 1.3 mmol/L (0.7-2.1) Urine Color Yellow Urine Clarity Clear Urine pH 5.0 pH (4.8-9.5) Urine Specific [place] 1.040 Urine Protein 30 mg/dL (NEGATIVE) Urine Glucose (UA) Negative mg/dL (NEGATIVE) Urine Ketones Negative mg/dL (NEGATIVE) Urine Blood Small (NEGATIVE) Urine Nitrite Negative (NEGATIVE) Urine Bilirubin Negative (NEGATIVE) Urine Urobilinogen Negative mg/dL (0.2-1.9) Urine Leukocyte Esterase Negative (NEGATIVE) Urine RBC 4 /HPF (0-2/HPF) Urine WBC 1 /HPF (0-5/HPF) Urine Squamous Epithelial Cells Few /LPF (</=FEW) Urine Bacteria Few /HPF (NONE-FEW) Urine Mucus Few /HPF (NONE-FEW) Chemistry Test 08/07/18 16:57 08/07/18 17:38 08/07/18 18:54 White Blood Count 5.8 k/uL (4.5-11.0) Red Blood Count 4.22 M/uL (4.00-5.60) Hemoglobin 12.9 g/dL (14.0-18.0) Hematocrit 39.1 % (42.0-52.0) Mean Corpuscular Volume 92.5 fL (80.0-96.0) Mean Corpuscular Hemoglobin 30.5 pg (26.0-33.0) Mean Corpuscular Hemoglobin Concent 33.0 g/dL (32.0-36.0) Red Cell Distribution Width 14.7 % (11.5-14.5) Platelet Count 281 K/uL (150-450) Mean Platelet Volume 8.1 fL (7.2-11.1) Neutrophils (%) (Auto) 64.3 % (39.4-72.5) Lymphocytes (%) (Auto) 22.6 % (17.6-49.6) Monocytes (%) (Auto) 8.2 % (4.1-12.4) Eosinophils (%) (Auto) 3.0 % (0.4-6.7) Basophils (%) (Auto) 1.9 % (0.3-1.4) Nucleated RBC Relative Count (auto) 0.0 /100WBC Neutrophils # (Auto) 3.7 K/uL (2.0-7.4) Lymphocytes # (Auto) 1.3 K/uL (1.3-3.6) Monocytes # (Auto) 0.5 K/uL (0.3-1.0) Eosinophils # (Auto) 0.2 K/uL (0.0-0.5) Basophils # (Auto) 0.1 K/uL (0.0-0.1) Nucleated RBC Absolute Count (auto) 0.00 K/uL D-Dimer Quantitative (PE/DVT) 1.20 ug/ml (0-0.50) Glomerular Filtration Rate Calc 52.0 Calcium Level 8.6 mg/dl (8.4-10.2) Total Bilirubin 0.4 mg/dl (0.2-1.3) Aspartate Amino Transf (AST/SGOT) 24 U/L (0-35) Alanine Aminotransferase (ALT/SGPT) 27 U/L (0-56) Alkaline Phosphatase 77 U/L (0-126) Troponin I < 0.012 ng/ml Total Protein 6.5 g/dl (6.3-8.2) Albumin 3.7 g/dl (3.5-5.0) Lactate 1.3 mmol/L (0.7-2.1) Urine Color Yellow Urine Clarity Clear Urine pH 5.0 pH (4.8-9.5) Urine Specific [place] 1.040 Urine Protein 30 mg/dL (NEGATIVE) Urine Glucose (UA) Negative mg/dL (NEGATIVE) Urine Ketones Negative mg/dL (NEGATIVE) Urine Blood Small (NEGATIVE) Urine Nitrite Negative (NEGATIVE) Urine Bilirubin Negative (NEGATIVE) Urine Urobilinogen Negative mg/dL (0.2-1.9) Urine Leukocyte Esterase Negative (NEGATIVE) Urine RBC 4 /HPF (0-2/HPF) Urine WBC 1 /HPF (0-5/HPF) Urine Squamous Epithelial Cells Few /LPF (</=FEW) Urine Bacteria Few /HPF (NONE-FEW) Urine Mucus Few /HPF (NONE-FEW) Coagulation Test 08/07/18 16:57 D-Dimer Quantitative (PE/DVT) 1.20 ug/ml Urinalysis Test 08/07/18 18:54 Urine Color Yellow Urine Clarity Clear Urine pH 5.0 pH (4.8-9.5) Urine Specific [place] 1.040 Urine Protein 30 mg/dL (NEGATIVE) Urine Glucose (UA) Negative mg/dL (NEGATIVE) Urine Ketones Negative mg/dL (NEGATIVE) Urine Blood Small (NEGATIVE) Urine Nitrite Negative (NEGATIVE) Urine Bilirubin Negative (NEGATIVE) Urine Urobilinogen Negative mg/dL (0.2-1.9) Urine Leukocyte Esterase Negative (NEGATIVE) Urine RBC 4 /HPF (0-2/HPF) Urine WBC 1 /HPF (0-5/HPF) Urine Squamous Epithelial Cells Few /LPF (</=FEW) Urine Bacteria Few /HPF (NONE-FEW) Urine Mucus Few /HPF (NONE-FEW) (URVASHI MARTINES DO) EKG/Imaging Imaging FACILITY[place] [facility] [place] PATIENT NAME: Abhijit Young : 1930 MR: [id number] V: [id number] EXAM DATE: ORDERING PHYSICIAN: LYLE CARMICHAEL TECHNOLOGIST: Location: [facility] Patient: Abhijit Young : 1930 Visit/Account:[id number] Date of Sev: 08/07/2018 EXAMINATION: CTA of the chest with IV contrast HISTORY: Weakness. Near syncope. TECHNIQUE: Pulmonary embolus protocol - Thin axial CT images of the chest were obtained with IV contrast during maximal pulmonary arterial opacification. Reconstruction of the source data includes multiplanar 2D coronal and sagittal reconstructed images, and 3D coronal and sagittal MIP images. Painter Plate images have been stored on PACS. One of the following dose optimization techniques was utilized in the performance of this exam: Automated exposure control; adjustment of the mA and/or kV according to the patient's size; or use of an iterative reconstruction technique. Specific details can be referenced in the facility's radiology CT exam operational policy. Contrast: 75 mL of IV Isovue-370. COMPARISON: 09/21/2013. FINDINGS: Pulmonary arteries: The pulmonary arteries are well opacified, without suspicious filling defect. Heart, aorta, and great vessels: The thoracic aorta is poorly opacified but normal in caliber. Vascular calcifications including coronary artery ca lcifications. Normal heart size. No pericardial effusion. There is some reflux of contrast inferiorly into the distended IVC and hepatic veins which may be compatible with right heart dysfunction. Lungs and pleura: Small bilateral layering pleural effusions, larger on the right. There are increased interstitial opacities throughout both lungs with inter- and intralobular septal thickening predominantly involving the lower lungs, with some associated patchy groundglass opacity. Findings may be due to pulmonary edema. Superimposed infiltrate is not excluded in the lower lungs. There are a few small nodules present in both lungs which are partially obscured by adjacent interstitial thickening and groundglass opacity. Largest nodules measure 7 mm in the right upper lobe laterally (series 10, image 134), with some adjacent smaller clustered nodular opacities, along with a 4 mm nodule in the right upper lobe (image 111), a 4 mm nodule in the right lung apex (image 52), a 4 mm nodule in the left upper lobe posteriorly (image 68), and a 4 mm nodule in the left upper lobe laterally (image 148). No pneumothorax. The central airways are patent. Mediastinum and aleida: Negative. Visualized upper abdomen: Unremarkable. Chest wall: Negative. Bones: No acute osseous findings. Chronic multilevel degenerative changes along the spine. Vertebral body height is maintained. Left shoulder arthroplasty. IMPRESSION: 1. No evidence of pulmonary embolism. 2. Small bilateral layering pleural effusions, larger on the right. 3. There is interstitial thickening throughout both lungs with some associated patchy groundglass opacity. Findings may be due to pulmonary edema. Superimposed infiltrate not excluded. 4. There are scattered subcentimeter nodules present in both lungs which are indeterminate. These may be infectious or inflammatory but warrant CT follow-up. Follow-up imaging in 3 months could be performed to assess for resolution or persistence. Report Dictated By: Brennon Chi MD at 08/07/2018 6:30 PM Report E-Signed By: Brennon Chi MD at 08/07/2018 6:38 PM WSN:[id number] (URVASHI MARTINES DO) ED Course/Re-evaluation ED Course I assumed patient care from Dr. Carmichael at shift change at 1800. Patient was pending CT angiogram of the chest due to an elevated d-dimer. CT angios showed small bilateral pleural effusions, increased interstitial markings and possible chronic scarring with nodules which will need to be followed up with with a repeat CT scan in 3 months. Patient was updated regarding his findings. He was noted to be hypoxic at 72% so supplemental oxygen was arranged for outpatient and the patient is able follow-up with PCP. Patient was recommended to follow up closely with PCP, return precautions provided. Decision to Disposition Date: August 07, 2018 Decision to Disposition Time: 19:23 (URVASHI MARTINES DO) Depart Departure Latest Vital Signs Vital Signs Date Time Temp Pulse Resp B/P (MAP) Pulse Ox O2 Delivery O2 Flow Rate FiO2 08/07/18 19:05 16 72 08/07/18 19:00 175/113 (133) 08/07/18 18:35 65 08/07/18 17:03 3.0 08/07/18 16:39 97.7 Room Air (URVASHI MARTINES DO) Impression: Primary Impression: Shortness of breath Additional Impression: Hypoxia Condition: Improved Disposition: HOME OR SELF-CARE Referrals: URIEL PHILLIPS MD (PCP) Departure Forms: ER Transition Record, Home Oxygen, Nebulizer RX, Home Oxygen Company Chosen by Patient: [employer] Durable Medical Equipment-Oxygen: Portable Oxygen Gas Reason for Use/Diagnosis: Hypoxia, effusions- 2 lpm NC until cleared by PCP Medications Reconciliation, Patient Portal Information Patient Instructions: Dyspnea (GEN) Additional Instructions: Please follow up closely with your primary care physician. Please keep your oxygen in place as your oxygen levels have dropped. You will need to have a follow-up CT scan likely several months as you were found to have nonspecific nodules in the lungs. Please return promptly if you develop increased shortness of breath, cough, fevers, dizziness, inability keep down food or fluids. Problem Qualifiers LYLE CARMICHAEL MD August 07, 2018 16:42 URVASHI MARTINES DO August 07, 2018 18:00
--- NOTE | 2018-08-07 16:58 | EKG ---
FACILITY: [facility] - [place] PATIENT NAME: AGA JORDAN : [id number] MR: [id number] V: [id number] EXAM DATE: ORDERING PHYSICIAN: LYLE CARMICHAEL TECHNOLOGIST: MAAME Test Reason : SYNCOPE Blood Pressure : / mmHG Vent. Rate : 061 BPM Atrial Rate : 055 BPM P-R Int : 140 ms QRS Dur : 090 ms QT Int : 476 ms P-R-T Axes : 058 056 -10 degrees QTc Int : 479 ms Sinus bradycardia with premature atrial complexes Nonspecific ST abnormality Abnormal ECG When compared with ECG of 27-JUN-2016 08:59, T wave inversion now evident in Inferior leads QT has lengthened Confirmed by URIEL ROCHA ([id number]) on 08/07/2018 6:20:35 PM Referred By: JANY Confirmed By:URIEL ROCHA
[2018-08-07 17:08] LABS: PLATELET COUNT, AUTOMATED 281 K/uL (150-450)
[2018-08-07] MEDS ORDERED: NS(*) 0.9% 50 ML BAG 50 ML ONE (17:39)
[2018-08-07] MEDS ORDERED: IOPAMIDOL 76% 100 ML INFUS BTL 100 ML ONE (17:39)
--- NOTE | 2018-08-07 17:40 | RADIOLOGY IMAGING REPORT ---
FACILITY: [facility] - [place] PATIENT NAME: Abhijit Young : 1930 MR: [id number] V: [id number] EXAM DATE: ORDERING PHYSICIAN: LYLE CARMICHAEL TECHNOLOGIST: Location: Patient: Abhijit Young : 1930 Visit/Account:[id number] Date of Sevice: 08/07/2018 INDICATION: cp. Chest pain. DATE: 08/07/2018 5:33 PM. TECHNIQUE: CHEST PA LAT COMPARISON: Chest radiograph July 27, 2016 FINDINGS: Heart size is normal. The interstitium is diffusely prominent. There is no focal pneumoni a. Reticulation at the lung bases is more prominent than on the comparison. There is background air ways disease. IMPRESSION: Wilhelm prominent reticulation at the lung bases could represent mild interstitial edema versus develop ing infection (possibly atypical). Report Dictated By: Zandra Damian MD at 08/07/2018 5:33 PM Report E-Signed By: Zandra Damian MD at 08/07/2018 5:37 PM WSN:[id number]
--- NOTE | 2018-08-07 17:50 | RADIOLOGY IMAGING REPORT ---
FACILITY: [facility] PATIENT NAME: Abhijit Young : 1930 MR: [id number] V: [id number] EXAM DATE: ORDERING PHYSICIAN: LYLE CARMICHEAL TECHNOLOGIST: Location: [facility] - [place] Patient: Abhijit Young : 1930 Visit/Account:[id number] Date of Sevice: 08/07/2018 CT BRAIN NO CONTRAST History: WEAKNESS TECHNIQUE: Contiguous angled axial images were obtained from the vertex through the base of the sku ll without intravenous contrast. One of the following dose optimization techniques was utilized in e performance of this exam: Automated exposure control; adjustment of the mA and/or kV according to t he patient's size; or use of an iterative reconstruction technique. Specific details can be referen didier in the facility's radiology CT exam operational policy. COMPARISON STUDIES: Prior study from 2013 is not available FINDINGS: There is an implanted metallic device in the right parietal area with wires extending into the right mastoid air cells at least into the right temporal bone. This is causing significant scatte r artifact limiting evaluation of the brain. Ventricles / sulci / fissures: Negative. Masses / hemorrhage / midline shift: Negative. Intra-axial findings: Normal. Extra-axial fluid collections: Negative. Intracranial vasculature and dural sinuses: Vascular plaque is seen in the cavernous portion carotid arteries and left vertebral artery. Skull base / calvarium: Negative. Scalp: Implanted device in the right parietal scalp as discussed above. Visualized mastoid air cells / paranasal sinuses: Well aerated. Orbits: Remote cataract surgery Additional findings: There is an old transverse fracture through the base of the dens with the dens d isplaced 6 mm anteriorly. This is well-visualized sagittal images 39-33. IMPRESSION: No intracranial acute pathology identified. Examination slightly limited by scatter artifact from im planted right scalp device. Old displaced dens fracture which is perched anteriorly on the C2 vertebral body. Results were called to LYLE CARMICHAEL at 08/07/2018 5:35 PM. Report Dictated By: Alejandro Rodriguez MD at 08/07/2018 5:35 PM Report E-Signed By: Alejandro Rodriguez MD at 08/07/2018 5:46 PM WSN:[id number]
--- NOTE | 2018-08-07 18:42 | RADIOLOGY IMAGING REPORT ---
[place] [facility] [place] Abhijit Young : 1930 MR: [id number] V: [id number] EXAM DATE: ORDERING PHYSICIAN: LYLE CARMICHAEL TECHNOLOGIST: [place] [facility] [place] Patient: Abhijit Young : 1930 Visit/Account:[id number] Date of Sevice: 08/07/2018 EXAMINATION: CTA of the chest with IV contrast HISTORY: Weakness. Near syncope. TECHNIQUE: Pulmonary embolus protocol - Thin axial CT images of the chest were obtained with IV con trast during maximal pulmonary arterial opacification. Reconstruction of the source data includes mul tiplanar 2D coronal and sagittal reconstructed images, and 3D coronal and sagittal MIP images. Repres entative images have been stored on PACS. One of the following dose optimization techniques was utilized in the performance of this exam: Autom ated exposure control; adjustment of the mA and/or kV according to the patient's size; or use of an i terative reconstruction technique. Specific details can be referenced in the facility's radiology C T exam operational policy. Contrast: 75 mL of IV Isovue-370. COMPARISON: 09/21/2013. FINDINGS: Pulmonary arteries: The pulmonary arteries are well opacified, without suspicious filling defect. Heart, aorta, and great vessels: The thoracic aorta is poorly opacified but normal in caliber. Vascu lar calcifications including coronary artery calcifications. Normal heart size. No pericardial effusi on. There is some reflux of contrast inferiorly into the distended IVC and hepatic veins which may be compatible with right heart dysfunction. Lungs and pleura: Small bilateral layering pleural effusions, larger on the right. There are increas ed interstitial opacities throughout both lungs with inter- and intralobular septal thickening predom inantly involving the lower lungs, with some associated patchy groundglass opacity. Findings may be d ue to pulmonary edema. Superimposed infiltrate is not excluded in the lower lungs. There are a few small nodules present in both lungs which are partially obscured by adjacent intersti tial thickening and groundglass opacity. Largest nodules measure 7 mm in the right upper lobe lateral ly (series 10, image 134), with some adjacent smaller clustered nodular opacities, along with a 4 mm nodule in the right upper lobe (image 111), a 4 mm nodule in the right lung apex (image 52), a 4 mm n odule in the left upper lobe posteriorly (image 68), and a 4 mm nodule in the left upper lobe lateral ly (image 148). No pneumothorax. The central airways are patent. Mediastinum and aleida: Negative. Visualized upper abdomen: Unremarkable. Chest wall: Negative. Bones: No acute osseous findings. Chronic multilevel degenerative changes along the spine. Vertebral body height is maintained. Left shoulder arthroplasty. IMPRESSION: 1. No evidence of pulmonary embolism. 2. Small bilateral layering pleural effusions, larger on the right. 3. There is interstitial thickening throughout both lungs with some associated patchy groundglass opa city. Findings may be due to pulmonary edema. Superimposed infiltrate not excluded. 4. There are scattered subcentimeter nodules present in both lungs which are indeterminate. These may be infectious or inflammatory but warrant CT follow-up. Follow-up imaging in 3 months could be perfo rmed to assess for resolution or persistence. Report Dictated By: Brennon Chi MD at 08/07/2018 6:30 PM Report E-Signed By: Brennon Chi MD at 08/07/2018 6:38 PM WSN:[id number]
[2018-08-07 20:00] VITALS: BP 173/92
== END 2018-08-07 20:18 | disposition home or self-care (01) ==
LOC: ER 17:01
DX: R06.02 Shortness of breath (principal); R09.02 Hypoxemia; Z79.82 Long term (current) use of aspirin; Z79.899 Other long term (current) drug therapy
CPT/HCPCS: 70450; 71046; 71275; 81001; 83605; 84484; 85025; 85379; 93005; 96360; 99284; J7030; J7050; Q9967; 82040; 82247; 82310; 82374; 82435; 82565; 82947; 84075; 84132; 84155; 84295; 84450; 84460; 84520; L0172

== ENCOUNTER → 2018-08-14 | Outpatient (REF) | payer MEDICARE | PROVIDERS: ATTEND Family Medicine | DX: R60.1 Generalized edema (principal) | CPT/HCPCS: 83880 ==

== ENCOUNTER → 2018-08-15 | Outpatient (CLI) | payer MEDICARE | LOC: US 13:54 | PROVIDERS: ATTEND Family Medicine | DX: I51.7 Cardiomegaly (principal); I34.0 Nonrheumatic mitral (valve) insufficiency; I36.1 Nonrheumatic tricuspid (valve) insufficiency; I35.1 Nonrheumatic aortic (valve) insufficiency; I37.1 Nonrheumatic pulmonary valve insufficiency; I35.0 Nonrheumatic aortic (valve) stenosis | CPT/HCPCS: 93306 ==

== ENCOUNTER 2018-09-12 11:02 | Emergency (ER) | payer MEDICARE ==
--- NOTE | 2018-09-12 11:26 | ER Report ---
History and Physical Time Seen By MD: 11:24 Hx. of Stated Complaint: Pt. has been dizzy since 0700 this morning. Also having left eye blurriness. HPI/ROS CHIEF COMPLAINT: Dizziness HISTORY OF PRESENT ILLNESS: 88-year-old male patient presents to emergency room with complaint of dizziness. Patient states that this is been going on since 7:00 this morning. He states that at 7:00 he was sitting in his recliner and reached over for a couple of coffee. He states when he did that he had the sudden onset of dizziness. Patient states that there is nothing seems to make the dizziness worse. He states he has noted that he has blurred vision in his left eye. He states that that has been going on since 7:00 this morning as well. He states that he believes that that is the cause of his dizziness. He states when he closes his left eye that he has improved ability to ambulate. Patient denies any fevers, chills, vomiting or diarrhea. Patient has not taken any medication for this. Patient states that his stomach is "starting to feel funny". REVIEW OF SYSTEMS: Respiratory: No cough, no dyspnea. Cardiovascular: No chest pain, no palpitations. Gastrointestinal: As noted above Musculoskeletal: No back pain. Allergies: Coded Allergies: ciprofloxacin (Verified Allergy, Intermediate, 06/28/18) naproxen (Verified Allergy, Intermediate, LOOPY, 07/03/16) naproxen sodium (Verified Adverse Reaction, Mild, knocked him out, 07/03/16) Home Meds Active Scripts Ondansetron 4 Mg Odt (ONDANSETRON 4 MG ODT) 4 Mg Tab.rapdis, 4 MG PO Q6H PRN for NAUSEA/VOMITING, #20 TAB Prov:LIZZETTE CANNON 09/12/18 Diphenoxylate Hcl/Atropine (LOMOTIL TABLET) 1 Each Tablet, 1 EACH PO QID PRN for DIARRHEA, #20 TAB 0 Refills Prov:CARLOS OBRIEN MD 06/28/18 Reported Medications Metoprolol Tartrate (METOPROLOL TARTRATE) 50 Mg Tab, 1 TAB PO BID, TAB 06/28/18 Hydroxyzine Hcl (HYDROXYZINE HCL) 10 Mg/5 Ml Syrup, 10 MG PO 06/28/18 [Lortab 10/325MG] No Conflict Check, 1-2 TAB PO Q4-6H PRN for PAIN, #60 07/11/16 [Hydrocodone] No Conflict Check 07/11/16 Acetaminophen/Hydrocodone (HYDROCODON-ACETAMINOPHN 10-325) 1 Each Tab, 5 TAB PO DAILY, TAB 1 tab PO in the Morning, 2 Tab PO 1200, 1 tab PO @1700, 1 tab PO HS 07/03/16 Pantoprazole Sodium (PANTOPRAZOLE SODIUM) 40 Mg Tablet.dr, 40 MG PO QDAY, TAB.SR 07/03/16 Methadone Hcl (METHADONE HCL) 5 Mg Tab, 5 MG PO 0300 daily, TAB 07/03/16 Ranitidine Hcl (ZANTAC) 150 Mg Tablet, 150 MG PO EVENINGS, TAB 07/03/16 Dicyclomine Hcl (DICYCLOMINE HCL) 10 Mg Capsule, 10 MG PO HS, CAPSULE 07/03/16 Aspirin (ASPIRIN) 325 Mg Tablet, 0.5 TAB PO DAILY, TAB 03/24/14 Isosorbide Mononitrate (ISOSORBIDE MONONITRATE) 30 Mg Tab.er.24h, 30 MG PO DAILY 12/20/12 Cetirizine Hcl (Zyrtec) 10 Mg Tab, 10 MG PO QDAY 05/17/11 Past Medical/Surgical History Patient has past medical history of angina, irregular heartbeat, hypertension, hyperlipidemia, pneumonia, reflux, hernia, difficulty with urination, prostate cancer, and, neck fracture, back pain, alcohol use. Patient has a surgical history of bilateral cataract surgery, tonsillectomy, laminectomy, shoulder repair, ankle repair, prostatectomy, appendectomy, hernia repair, coronary stent. Reviewed Nurses Notes: Yes Hx Smoking: No Smoking Status: Never Smoker Exposure to Second Hand Smoke?: No Hx Substance Use Disorder: No Hx Alcohol Use: Yes Constitutional Vital Sign - Last 24 Hours 09/12/18 09/12/18 09/12/18 09/12/18 11:13 11:18 11:32 11:33 Temp 97.6 Pulse 73 63 Resp 16 12 B/P (MAP) 142/70 (94) 142/70 136/91 (106) Pulse Ox 91 91 O2 Delivery Room Air 09/12/18 09/12/18 09/12/18 09/12/18 11:38 12:08 12:30 12:35 Pulse 63 75 Resp 11 14 12 B/P (MAP) 138/84 (102) Pulse Ox 91 92 09/12/18 09/12/18 09/12/18 09/12/18 13:00 13:05 13:30 13:35 Pulse 49 64 Resp 15 15 B/P (MAP) 133/84 (100) 127/80 (96) Pulse Ox 83 84 09/12/18 13:40 Pulse 68 Resp 26 Pulse Ox 89 Physical Exam General Appearance: The patient is alert, has no immediate need for airway protection and no current signs of toxicity. Eyes: Pupils equal and round no injection. Extraocular movements intact. Respiratory: Chest is non tender, lungs are clear to auscultation. Cardiac: regular rate and rhythm Gastrointestinal: Abdomen is soft and non tender, no masses, bowel sounds normal. Musculoskeletal: Neck: Neck is tight on the left side and is non tender. Extremities have full range of motion and are non tender. Skin: No rashes or lesions. DIFFERENTIAL DIAGNOSIS: After history and physical exam differential diagnosis was considered for dizziness including but not limited to peripheral and central causes of vertigo, orthostatic causes including dehydration, and blood loss. Medical Decision Making Data Points Result Diagram: 09/12/18 1128 09/12/18 1128 Laboratory Hematology Test 09/12/18 11:28 Red Blood Count 4.51 M/uL (4.00-5.60) Mean Corpuscular Volume 91.9 fL (80.0-96.0) Mean Corpuscular Hemoglobin 30.8 pg (26.0-33.0) Mean Corpuscular Hemoglobin Concent 33.5 g/dL (32.0-36.0) Red Cell Distribution Width 13.8 % (11.5-14.5) Mean Platelet Volume 8.0 fL (7.2-11.1) Neutrophils (%) (Auto) 73.1 % (39.4-72.5) Lymphocytes (%) (Auto) 17.2 % (17.6-49.6) Monocytes (%) (Auto) 7.2 % (4.1-12.4) Eosinophils (%) (Auto) 1.7 % (0.4-6.7) Basophils (%) (Auto) 0.8 % (0.3-1.4) Nucleated RBC Relative Count (auto) 0.1 /100WBC Neutrophils # (Auto) 4.6 K/uL (2.0-7.4) Lymphocytes # (Auto) 1.1 K/uL (1.3-3.6) Monocytes # (Auto) 0.5 K/uL (0.3-1.0) Eosinophils # (Auto) 0.1 K/uL (0.0-0.5) Basophils # (Auto) 0.0 K/uL (0.0-0.1) Nucleated RBC Absolute Count (auto) 0.00 K/uL Sodium Level 137 mmol/L (137-145) Potassium Level 4.6 mmol/L (3.5-5.0) Chloride Level 103 mmol/L (98-107) Carbon Dioxide Level 21 mmol/L (22-30) Blood Urea Nitrogen 21 mg/dl (9-21) Creatinine 1.50 mg/dl (0.66-1.25) Glomerular Filtration Rate Calc 44.1 Random Glucose 99 mg/dl (75-110) Calcium Level 9.2 mg/dl (8.4-10.2) Total Bilirubin 1.0 mg/dl (0.2-1.3) Aspartate Amino Transf (AST/SGOT) 25 U/L (0-35) Alanine Aminotransferase (ALT/SGPT) 23 U/L (0-56) Alkaline Phosphatase 66 U/L (0-126) Troponin I < 0.012 ng/ml Total Protein 7.0 g/dl (6.3-8.2) Albumin 4.0 g/dl (3.5-5.0) Chemistry Test 09/12/18 11:28 White Blood Count 6.3 k/uL (4.5-11.0) Red Blood Count 4.51 M/uL (4.00-5.60) Hemoglobin 13.9 g/dL (14.0-18.0) Hematocrit 41.5 % (42.0-52.0) Mean Corpuscular Volume 91.9 fL (80.0-96.0) Mean Corpuscular Hemoglobin 30.8 pg (26.0-33.0) Mean Corpuscular Hemoglobin Concent 33.5 g/dL (32.0-36.0) Red Cell Distribution Width 13.8 % (11.5-14.5) Platelet Count 273 K/uL (150-450) Mean Platelet Volume 8.0 fL (7.2-11.1) Neutrophils (%) (Auto) 73.1 % (39.4-72.5) Lymphocytes (%) (Auto) 17.2 % (17.6-49.6) Monocytes (%) (Auto) 7.2 % (4.1-12.4) Eosinophils (%) (Auto) 1.7 % (0.4-6.7) Basophils (%) (Auto) 0.8 % (0.3-1.4) Nucleated RBC Relative Count (auto) 0.1 /100WBC Neutrophils # (Auto) 4.6 K/uL (2.0-7.4) Lymphocytes # (Auto) 1.1 K/uL (1.3-3.6) Monocytes # (Auto) 0.5 K/uL (0.3-1.0) Eosinophils # (Auto) 0.1 K/uL (0.0-0.5) Basophils # (Auto) 0.0 K/uL (0.0-0.1) Nucleated RBC Absolute Count (auto) 0.00 K/uL Glomerular Filtration Rate Calc 44.1 Calcium Level 9.2 mg/dl (8.4-10.2) Total Bilirubin 1.0 mg/dl (0.2-1.3) Aspartate Amino Transf (AST/SGOT) 25 U/L (0-35) Alanine Aminotransferase (ALT/SGPT) 23 U/L (0-56) Alkaline Phosphatase 66 U/L (0-126) Troponin I < 0.012 ng/ml Total Protein 7.0 g/dl (6.3-8.2) Albumin 4.0 g/dl (3.5-5.0) EKG/Imaging EKG Interpretation 12 lead EKG: Rhythm: Sinus rhythm with occasional PVCs and PACs, ventricular rate of 67 bpm [place]: normal QRS: normal ST segments: normal Imaging Exam type: CHEST SINGLE AP History: dizziness Comparison: August 07, 2018. Findings: The lungs are free of acute effusions, infiltrates or edema. The cardiac silhouette remains stable. There are postsurgical changes of the left shoulder. IMPRESSION: 1. No acute cardiac pulmonary process is seen Report Dictated By: Taylor Aguirre MD at 09/12/2018 1:32 PM Report E-Signed By: Taylor Aguirre MD at 09/12/2018 1:[address] BRAIN NO CONTRAST History: dizziness TECHNIQUE: Contiguous angled axial images were obtained from the vertex through the base of the skull without intravenous contrast. One of the following dose optimization techniques was utilized in the performance of this exam: Automated exposure control; adjustment of the mA and/or kV according to the patient's size; or use of an iterative reconstruction technique. Specific details can be referenced in the facility's radiology CT exam operational policy. COMPARISON STUDIES: Head CT 08/07/2018 FINDINGS: Patient has an electronic hearing aid device implanted adjacent to the right calvarium. Scatter artifact partially obscures intracranial structures. Ventricles / sulci / fissures: Negative. Masses / hemorrhage / midline shift: Negative. Intra-axial findings: Normal. Extra-axial fluid collections: Negative. Intracranial vasculature and dural sinuses: Prominent calcific plaque noted in the left vertebral artery Skull base / calvarium: Negative. Scalp: negative Visualized mastoid air cells / paranasal sinuses: Well aerated. Orbits: Remote cataract's lens replacement Additional findings: Implanted electronic device along the right temporal bone with wires extending into the mastoid air cells unchanged. Please see previous CT regarding the old displaced dens fracture. This is beyond the [id number] of today's examination. IMPRESSION: No acute intracranial pathology identified. Report Dictated By: Alejandro Rodriguez MD at 09/12/2018 12:20 PM Report E-Signed By: Alejandro Rodriguez MD at 09/12/2018 12:28 PM ED Course/Re-evaluation ED Course Patient is admitted and examined, history and physical were obtained. Differential diagnoses were considered. On examination lungs are clear, heart regular, abdomen is soft nontender. Patient has good extraocular movements bilaterally, his corrected strength throughout. Cranial nerves II through XII grossly intact. With dizziness a CT scan of the head was done, showed no acute findings. Chest x-ray, EKG were done both which were negative. I did discuss the case with Dr. Wong, ophthalmology in [place]. With patient complaining of a haziness over the left eye which seems to be worsened, although it has been there for the past couple of months, he felt that with extraocular movements intact, normal intraocular pressures and improvement in symptoms the patient could be discharged home. He can follow-up with ophthalmology in [place] for a full exam. Patient did have a visual acuity scan done which was 20/40 in the right eye and 20/100 in the left eye. Patient states the dizziness has improved. He states that the Zofran that would give him seemed to help considerably. We will go ahead and discharge him home. He is follow-up with Dr. Chandler, he is to call on Saturday to make an appointment. Patient and family verbalized understanding and agreement with plan. Decision to Disposition Date: Sep 12, 2018 Decision to Disposition Time: 14:51 Depart Departure Latest Vital Signs Vital Signs Date Time Temp Pulse Resp B/P (MAP) Pulse Ox O2 Delivery O2 Flow Rate FiO2 09/12/18 13:40 68 26 89 09/12/18 13:30 127/80 (96) 09/12/18 11:18 97.6 Room Air Impression: Primary Impression: Dizziness Condition: Improved Disposition: HOME OR SELF-CARE Referrals: URIEL PHILLIPS MD (PCP) New Scripts Ondansetron 4 Mg Odt (ONDANSETRON 4 MG ODT) 4 Mg Tab.rapdis 4 MG PO Q6H PRN for NAUSEA/VOMITING, #20 TAB Prov: LIZZETTE CANNON 09/12/18 Patient Instructions: Dizziness (ED) Additional Instructions: Get plenty of rest. Increase fluid intake. Follow up with Dr. Chandler Opthamology in the next week, call to make an appointment. [address] Return to the ER if condition worsens. LIZZETTE CANNONP Sep 12, 2018 11:26
[2018-09-12] MEDS ORDERED: ONDANSETRON 4 MG/2 ML VIAL IVP ONE (11:40)
[2018-09-12 11:43] LABS: PLATELET COUNT, AUTOMATED 273 K/uL (150-450)
--- NOTE | 2018-09-12 11:43 | EKG ---
FACILITY: [facility] PATIENT NAME: AGA JORDAN : [id number] MR: [id number] V: [id number] EXAM DATE: ORDERING PHYSICIAN: LIZZETTE CANNON TECHNOLOGIST: BALBINA Test Reason : DIZZINESS Blood Pressure : / mmHG Vent. Rate : 067 BPM Atrial Rate : 063 BPM P-R Int : 142 ms QRS Dur : 084 ms QT Int : 440 ms P-R-T Axes : 068 061 048 degrees QTc Int : 464 ms Sinus rhythm with occasional premature ventricular complexes and premature atrial complexes Possible left atrial enlargement Slightly prolonged QTc Nonspecific ST findings lateral leads Confirmed by OSVALDO COUGHLIN ([id number]) on 09/12/2018 8:43:02 PM Referred By: JANY Confirmed By:OSVALDO COUGHLIN
--- NOTE | 2018-09-12 12:33 | RADIOLOGY IMAGING REPORT ---
FACILITY: [facility] PATIENT NAME: Abhijit Young : 1930 MR: [id number] V: [id number] EXAM DATE: ORDERING PHYSICIAN: LIZZETTE CANNON TECHN[place]IST: [place] [facility] [place]: [place]hijit [place] : 1930 Visit/Account:[id number] Date of Sevice: 09/12/2018 CT BRAIN NO CONTRAST History: dizziness TECHNIQUE: Contiguous angled axial images were obtained from the vertex through the base of the sku ll without intravenous contrast. One of the following dose optimization techniques was utilized in e performance of this exam: Automated exposure control; adjustment of the mA and/or kV according to t he patient's size; or use of an iterative reconstruction technique. Specific details can be referen didier in the facility's radiology CT exam operational policy. COMPARISON STUDIES: Head CT 08/07/2018 FINDINGS: Patient has an electronic hearing aid device implanted adjacent to the right calvarium. Sca tter artifact partially obscures intracranial structures. Ventricles / sulci / fissures: Negative. Masses / hemorrhage / midline shift: Negative. Intra-axial findings: Normal. Extra-axial fluid collections: Negative. Intracranial vasculature and dural sinuses: Prominent calcific plaque noted in the left vertebral ar isaac Skull base / calvarium: Negative. Scalp: negative Visualized mastoid air cells / paranasal sinuses: Well aerated. Orbits: Remote cataract's lens replacement Additional findings: Implanted electronic device along the right temporal bone with wires extending i nto the mastoid air cells unchanged. Please see previous CT regarding the old displaced dens fracture. This is beyond the [id number] of today's examination. IMPRESSION: No acute intracranial pathology identified. Report Dictated By: Alejandro Rodriguez MD at 09/12/2018 12:20 PM Report E-Signed By: Alejandro Rodriguez MD at 09/12/2018 12:28 PM WSN:[id number]
[2018-09-12 13:30] VITALS: BP 127/80
--- NOTE | 2018-09-12 13:43 | RADIOLOGY IMAGING REPORT ---
FACILITY: [facility] PATIENT NAME: Abhijit Young : 1930 MR: [id number] V: [id number] EXAM DATE: ORDERING PHYSICIAN: LIZZETTE CANNON TECHNOLOGIST: Location: [facility] [place] Patient: Abhijit Young : 1930 Visit/Account:[id number] Date of Sevice: 09/12/2018 Exam type: CHEST SINGLE AP History: dizziness Comparison: August 07, 2018. Findings: The lungs are free of acute effusions, infiltrates or edema. The cardiac silhouette remains stable. There are postsurgical changes of the left shoulder. IMPRESSION: 1. No acute cardiac pulmonary process is seen Report Dictated By: Taylor Aguirre MD at 09/12/2018 1:32 PM Report E-Signed By: Taylor Aguirre MD at 09/12/2018 1:33 PM WSN:[id number]
[2018-09-12] MEDS ORDERED: ONDA4TAB9 PO (15:02)
[2018-09-13] MEDS ORDERED: HYDR-393 PO (10:08)
[2018-09-13] MEDS ORDERED: METH10 PO (10:41)
[2018-09-13] MEDS ORDERED: HYDR10TA3 PO (10:41)
[2018-09-13] MEDS ORDERED: SPIR50TA33 PO (10:41)
== END 2018-09-12 15:12 | disposition home or self-care (01) ==
LOC: ER 11:15
DX: R42 Dizziness and giddiness (principal); E78.5 Hyperlipidemia, unspecified; I10 Essential (primary) hypertension; K21.9 Gastro-esophageal reflux disease without esophagitis; Z79.82 Long term (current) use of aspirin; Z79.899 Other long term (current) drug therapy
CPT/HCPCS: 70450; 71045; 84484; 85025; 93005; 96374; 99285; J2405; 82040; 82247; 82310; 82374; 82435; 82565; 82947; 84075; 84132; 84155; 84295; 84450; 84460; 84520

== ENCOUNTER 2018-09-12 17:24 | Inpatient (IN) | payer MEDICARE ==
[~2018-09-12 17:24] MED LIST changes: +ONDA4TAB9 PO
--- NOTE | 2018-09-12 17:54 | ER Report ---
History and Physical Time Seen By MD: 17:52 Hx. of Stated Complaint: dizziness, confusion HPI/ROS CHIEF COMPLAINT: Confusion HISTORY OF PRESENT ILLNESS: 88-year-old male patient since emergency room with complaint of confusion. Patient states that he got home after being discharged this afternoon. He went to make something for lunch, but felt very confused. He states that he had a hard time making cereal with banana. He states that he wanted to lay down, but couldn't get comfortable. His son and [id number] state that he was struggling to make sense of things. Patient denies any nausea, vomiting or diarrhea. Patient hasn't taken any medication since his discharge. Patient denies having shortness of breath, chest pain. REVIEW OF SYSTEMS: Respiratory: No cough, no dyspnea. Cardiovascular: No chest pain, no palpitations. Gastrointestinal: No vomiting, no abdominal pain. Musculoskeletal: No back pain. Allergies: Coded Allergies: ciprofloxacin (Verified Allergy, Intermediate, 09/12/18) naproxen (Verified Allergy, Intermediate, LOOPY, 09/12/18) naproxen sodium (Verified Adverse Reaction, Mild, knocked him out, 09/12/18) Home Meds Active Scripts Ondansetron 4 Mg Odt (ONDANSETRON 4 MG ODT) 4 Mg Tab.rapdis, 4 MG PO Q6H PRN for NAUSEA/VOMITING, #20 TAB Prov:LIZZETTE CANNON 09/12/18 Diphenoxylate Hcl/Atropine (LOMOTIL TABLET) 1 Each Tablet, 1 EACH PO QID PRN for DIARRHEA, #20 TAB 0 Refills Prov:CARLOS OBRIEN MD 06/28/18 Reported Medications Metoprolol Tartrate (METOPROLOL TARTRATE) 50 Mg Tab, 1 TAB PO BID, TAB 06/28/18 Hydroxyzine Hcl (HYDROXYZINE HCL) 10 Mg/5 Ml Syrup, 10 MG PO 06/28/18 [Lortab 10/325MG] No Conflict Check, 1-2 TAB PO Q4-6H PRN for PAIN, #60 07/11/16 [Hydrocodone] No Conflict Check 07/11/16 Acetaminophen/Hydrocodone (HYDROCODON-ACETAMINOPHN 10-325) 1 Each Tab, 5 TAB PO DAILY, TAB 1 tab PO in the Morning, 2 Tab PO 1200, 1 tab PO @1700, 1 tab PO HS 4/25/17 Pantoprazole Sodium (PANTOPRAZOLE SODIUM) 40 Mg Tablet.dr, 40 MG PO QDAY, TAB.SR 07/03/16 Methadone Hcl (METHADONE HCL) 5 Mg Tab, 5 MG PO 0300 daily, TAB 07/03/16 Ranitidine Hcl (ZANTAC) 150 Mg Tablet, 150 MG PO EVENINGS, TAB 07/03/16 Dicyclomine Hcl (DICYCLOMINE HCL) 10 Mg Capsule, 10 MG PO HS, CAPSULE 07/03/16 Aspirin (ASPIRIN) 325 Mg Tablet, 0.5 TAB PO DAILY, TAB 03/24/14 Isosorbide Mononitrate (ISOSORBIDE MONONITRATE) 30 Mg Tab.er.24h, 30 MG PO DAILY 12/20/12 Cetirizine Hcl (Zyrtec) 10 Mg Tab, 10 MG PO QDAY 05/17/11 Past Medical/Surgical History Patient has a past medical history of angina, hypertension, pneumonia, reflux, difficulty urinating, prostate cancer, arthritis, neck fracture, ankle fracture, alcohol use. Patient has surgical history bilateral cataract surgery, tonsillectomy, laminectomy, shoulder surgery, ankle surgery, cholecystectomy, appendectomy, hernia repair, cochlear implant. Reviewed Nurses Notes: Yes Hx Smoking: No Smoking Status: Never Smoker Exposure to Second Hand Smoke?: No Hx Substance Use Disorder: No Hx Alcohol Use: Yes Constitutional Vital Sign - Last 24 Hours 09/12/18 17:44 Temp 98.3 Pulse 72 Resp 16 B/P (MAP) 157/82 Pulse Ox 86 O2 Delivery Room Air Physical Exam General Appearance: The patient is alert, has no immediate need for airway protection and no current signs of toxicity. Respiratory: Chest is non tender, lungs are clear to auscultation. Cardiac: regular rate and rhythm Gastrointestinal: Abdomen is soft and non tender, no masses, bowel sounds normal. Musculoskeletal: Neck: Neck is supple and non tender. Extremities have full range of motion and are non tender. Skin: No rashes or lesions. Neuro: Patient is alert and oriented 2, was unable to name the president, was able to give the correct year, knew that it was the month of September. Patient had equal strength in all extremities, cranial nerves II through XII grossly intact. DIFFERENTIAL DIAGNOSIS: After history and physical exam differential diagnosis was considered for dizziness including but not limited to peripheral and central causes of vertigo, orthostatic causes including dehydration, and blood loss. Medical Decision Making Data Points Result Diagram: 09/12/18181809/12/181818 Laboratory Hematology Test 09/12/18 18:19 09/12/18 18:28 Red Blood Count 4.67 M/uL (4.00-5.60) Mean Corpuscular Volume 91.5 fL (80.0-96.0) Mean Corpuscular Hemoglobin 31.1 pg (26.0-33.0) Mean Corpuscular Hemoglobin Concent 34.0 g/dL (32.0-36.0) Red Cell Distribution Width 13.9 % (11.5-14.5) Mean Platelet Volume 8.0 fL (7.2-11.1) Neutrophils (%) (Auto) 76.8 % (39.4-72.5) Lymphocytes (%) (Auto) 15.4 % (17.6-49.6) Monocytes (%) (Auto) 6.3 % (4.1-12.4) Eosinophils (%) (Auto) 0.7 % (0.4-6.7) Basophils (%) (Auto) 0.8 % (0.3-1.4) Nucleated RBC Relative Count (auto) 0.0 /100WBC Neutrophils # (Auto) 5.8 K/uL (2.0-7.4) Lymphocytes # (Auto) 1.2 K/uL (1.3-3.6) Monocytes # (Auto) 0.5 K/uL (0.3-1.0) Eosinophils # (Auto) 0.1 K/uL (0.0-0.5) Basophils # (Auto) 0.1 K/uL (0.0-0.1) Nucleated RBC Absolute Count (auto) 0.00 K/uL D-Dimer Quantitative (PE/DVT) 0.84 ug/ml (0-0.50) Carboxyhemoglobin 0.7 % (< 5.0) Sodium Level 138 mmol/L (137-145) Potassium Level 5.0 mmol/L (3.5-5.0) Chloride Level 101 mmol/L (98-107) Carbon Dioxide Level 22 mmol/L (22-30) Blood Urea Nitrogen 21 mg/dl (9-21) Creatinine 1.40 mg/dl (0.66-1.25) Glomerular Filtration Rate Calc 47.7 Random Glucose 137 mg/dl (75-110) Calcium Level 9.5 mg/dl (8.4-10.2) Total Bilirubin 0.9 mg/dl (0.2-1.3) Aspartate Amino Transf (AST/SGOT) 24 U/L (0-35) Alanine Aminotransferase (ALT/SGPT) 27 U/L (0-56) Alkaline Phosphatase 63 U/L (0-126) Troponin I < 0.012 ng/ml Total Protein 7.1 g/dl (6.3-8.2) Albumin 4.1 g/dl (3.5-5.0) Urine Color Yellow Urine Clarity Clear Urine pH 5.0 pH (4.8-9.5) Urine Specific [place] 1.024 Urine Protein 30 mg/dL (NEGATIVE) Urine Glucose (UA) Negative mg/dL (NEGATIVE) Urine Ketones Trace mg/dL (NEGATIVE) Urine Blood Moderate (NEGATIVE) Urine Nitrite Negative (NEGATIVE) Urine Bilirubin Negative (NEGATIVE) Urine Urobilinogen 4.0 mg/dL (0.2-1.9) Urine Leukocyte Esterase Negative (NEGATIVE) Urine RBC 10 /HPF (0-2/HPF) Urine WBC 4 /HPF (0-5/HPF) Urine Squamous Epithelial Cells None /LPF (</=FEW) Urine Bacteria Negative /HPF (NONE-FEW) Urine Hyaline Casts Many /LPF (NONE-FEW) Urine Mucus Few /HPF (NONE-FEW) Urine Opiates Screen Positive Urine Barbiturates Screen Negative Ur Tricyclic Antidepressants Screen Negative Urine Phencyclidine Screen Negative Urine Amphetamines Screen Negative Urine Benzodiazepines Screen Negative Urine Cocaine Screen Negative Urine Cannabinoids Screen Positive Chemistry Test 09/12/18 18:19 09/12/18 18:28 White Blood Count 7.5 k/uL (4.5-11.0) Red Blood Count 4.67 M/uL (4.00-5.60) Hemoglobin 14.5 g/dL (14.0-18.0) Hematocrit 42.7 % (42.0-52.0) Mean Corpuscular Volume 91.5 fL (80.0-96.0) Mean Corpuscular Hemoglobin 31.1 pg (26.0-33.0) Mean Corpuscular Hemoglobin Concent 34.0 g/dL (32.0-36.0) Red Cell Distribution Width 13.9 % (11.5-14.5) Platelet Count 277 K/uL (150-450) Mean Platelet Volume 8.0 fL (7.2-11.1) Neutrophils (%) (Auto) 76.8 % (39.4-72.5) Lymphocytes (%) (Auto) 15.4 % (17.6-49.6) Monocytes (%) (Auto) 6.3 % (4.1-12.4) Eosinophils (%) (Auto) 0.7 % (0.4-6.7) Basophils (%) (Auto) 0.8 % (0.3-1.4) Nucleated RBC Relative Count (auto) 0.0 /100WBC Neutrophils # (Auto) 5.8 K/uL (2.0-7.4) Lymphocytes # (Auto) 1.2 K/uL (1.3-3.6) Monocytes # (Auto) 0.5 K/uL (0.3-1.0) Eosinophils # (Auto) 0.1 K/uL (0.0-0.5) Basophils # (Auto) 0.1 K/uL (0.0-0.1) Nucleated RBC Absolute Count (auto) 0.00 K/uL D-Dimer Quantitative (PE/DVT) 0.84 ug/ml (0-0.50) Carboxyhemoglobin 0.7 % (< 5.0) Glomerular Filtration Rate Calc 47.7 Calcium Level 9.5 mg/dl (8.4-10.2) Total Bilirubin 0.9 mg/dl (0.2-1.3) Aspartate Amino Transf (AST/SGOT) 24 U/L (0-35) Alanine Aminotransferase (ALT/SGPT) 27 U/L (0-56) Alkaline Phosphatase 63 U/L (0-126) Troponin I < 0.012 ng/ml Total Protein 7.1 g/dl (6.3-8.2) Albumin 4.1 g/dl (3.5-5.0) Urine Color Yellow Urine Clarity Clear Urine pH 5.0 pH (4.8-9.5) Urine Specific [place] 1.024 Urine Protein 30 mg/dL (NEGATIVE) Urine Glucose (UA) Negative mg/dL (NEGATIVE) Urine Ketones Trace mg/dL (NEGATIVE) Urine Blood Moderate (NEGATIVE) Urine Nitrite Negative (NEGATIVE) Urine Bilirubin Negative (NEGATIVE) Urine Urobilinogen 4.0 mg/dL (0.2-1.9) Urine Leukocyte Esterase Negative (NEGATIVE) Urine RBC 10 /HPF (0-2/HPF) Urine WBC 4 /HPF (0-5/HPF) Urine Squamous Epithelial Cells None /LPF (</=FEW) Urine Bacteria Negative /HPF (NONE-FEW) Urine Hyaline Casts Many /LPF (NONE-FEW) Urine Mucus Few /HPF (NONE-FEW) Urine Opiates Screen Positive Urine Barbiturates Screen Negative Ur Tricyclic Antidepressants Screen Negative Urine Phencyclidine Screen Negative Urine Amphetamines Screen Negative Urine Benzodiazepines Screen Negative Urine Cocaine Screen Negative Urine Cannabinoids Screen Positive Coagulation Test 09/12/18 18:19 D-Dimer Quantitative (PE/DVT) 0.84 ug/ml Toxicology Test 09/12/18 18:28 Urine Opiates Screen Positive Urine Barbiturates Screen Negative Ur Tricyclic Antidepressants Screen Negative Urine Phencyclidine Screen Negative Urine Amphetamines Screen Negative Urine Benzodiazepines Screen Negative Urine Cocaine Screen Negative Urine Cannabinoids Screen Positive Urinalysis Test 09/12/18 18:28 Urine Color Yellow Urine Clarity Clear Urine pH 5.0 pH (4.8-9.5) Urine Specific [place] 1.024 Urine Protein 30 mg/dL (NEGATIVE) Urine Glucose (UA) Negative mg/dL (NEGATIVE) Urine Ketones Trace mg/dL (NEGATIVE) Urine Blood Moderate (NEGATIVE) Urine Nitrite Negative (NEGATIVE) Urine Bilirubin Negative (NEGATIVE) Urine Urobilinogen 4.0 mg/dL (0.2-1.9) Urine Leukocyte Esterase Negative (NEGATIVE) Urine RBC 10 /HPF (0-2/HPF) Urine WBC 4 /HPF (0-5/HPF) Urine Squamous Epithelial Cells None /LPF (</=FEW) Urine Bacteria Negative /HPF (NONE-FEW) Urine Hyaline Casts Many /LPF (NONE-FEW) Urine Mucus Few /HPF (NONE-FEW) EKG/Imaging Imaging MR BRAIN/BRAIN STEM W/O CON Comparisons: Head CT scan dated earlier same day. Additional pertinent history: Confusion TECHNIQUE: Multiplanar, multisequence brain MRI was performed without gadolinium contrast. FINDINGS: Disclaimer: Study severely limited by metallic artifact.. The sagittal midline structures are unremarkable. Moderate cerebral atrophy. Mild enlargement of the lateral and third ventricles. The fourth ventricle is within the midline. Multiple scattered foci of abnormal increased T2 signal within the periventricular and subcortical white matter, nonspecific but likely representing small vessel ischemic change on a chronic basis. No obvious mass effect. Diffusion weighted imaging is severely limited and basically nondiagnostic. No evidence of hemorrhage on the sagittal T1-weighted images of the axial T2- weighted images. The orbits are unremarkable. The paranasal sinuses and mastoid air cells are clear. Impression: 1. Study severely limited by metallic artifact. 2. Age-related changes described above. 3. No obvious acute intracranial pathology noted. Report Dictated By: Chad Segundo MD at 09/12/2018 9:14 PM Report E-Signed By: Chad Segundo MD at 09/12/2018 9:[address] angiogram chest with contrast Indication: Shortness of breath. Elevated d-dimer. Comparison: 08/07/2018. Technique: Axial CT images are obtained through the chest after administration of 75 mL Isovue 370 IV contrast. Reformatted coronal and sagittal images were re viewed as well as coronal MIP images. One of the following dose optimization techniques was utilized in the performance of this exam: automated exposure control; adjustment of the mA and/or kV according to the patient's size; or use of an iterative reconstruction technique. Specific details can be referenced in the facility's radiology CT exam operational policy. FINDINGS: No evidence of filling defect within the pulmonary vasculature to suggest pulmonary embolus. Heart is normal size without pericardial effusion. Coronary artery calcination indications. Aorta shows mild atherosclerotic calcific changes without aneurysm. Aorta is not well opacified to assess for dissection. Lungs show mild dependent atelectasis. No consolidations, pleural effusion or pneumothorax. No discrete nodule or focal interstitial opacities. Airways are clear. Bony structures show no fractures or aggressive bony lesions. A subcentimeter sclerotic foci is again seen in the T7 vertebral body may represent a bone island. Left shoulder arthroplasty without sequelae. The left kidney does show a cyst measuring 3.4 cm. The upper abdomen is otherwise unremarkable. IMPRESSION: 1. No evidence of pulmonary embolus. 2. No acute cardiothoracic abnormality 3. Left renal cyst. Report Dictated By: Gibran Dave at 09/12/2018 9:24 PM Report E-Signed By: Gibran Dave at 09/12/2018 9:32 PM ED Course/Re-evaluation ED Course Patient was admitted to exam, history and physical were obtained. Differential diagnoses were considered. On examination lungs are clear, heart is regular, abdomen soft nontender. Patient did have some confusion. He did have difficulty with word finding, he was unable to name the miner helper and also was unable to name the year. The family states that that is very abnormal for him. We did repeat lab work, CBC, CMP, d-dimer, urinalysis and drug screen. Lab work was unchanged, d-dimer was elevated at 0.86, urinalysis did show trace ketones and drug screen was positive for opiates as well as cannabis. I did discuss the cannabis with the patient. He states that he has not taken any marijuana. He did state that he is taking a cream which was prescribed by his pain specialist. He is unsure what is in it is possible that does have CBD oil. A CT pulmonary angiogram was done which was negative. An MRI of the brain was done which showed no acute findings. I discussed the case with Dr. Ennis, hospitalist, who agreed to accept the patient for admission. He stated that he believed that this was likely related to the medications that the patient was taking. I did discuss the plan with the patient and his family. I informed them that Dr. Ennis's concern was that this related to medication. They verbalized understanding and agreement with plan. Decision to Disposition Date: Sep 12, 2018 Decision to Disposition Time: 22:16 Depart Departure Latest Vital Signs Vital Signs Date Time Temp Pulse Resp B/P (MAP) Pulse Ox O2 Delivery O2 Flow Rate FiO2 09/12/18 17:44 98.3 72 16 157/82 86 Room Air Impression: Primary Impression: Confusion Condition: Condition Unchanged Disposition: Admitted from ER Referrals: URIEL PHILLIPS MD (PCP) LIZZETTE CANNON Sep 12, 2018 17:54
[2018-09-12] MEDS ORDERED: NS(*) 0.9% 500 ML BAG 500 ML IV ONE (18:09)
[2018-09-12 18:39] LABS: PLATELET COUNT, AUTOMATED 277 K/uL (150-450)
[2018-09-12] MEDS ORDERED: IOPAMIDOL 76% 100 ML INFUS BTL 100 ML ONE (19:59)
[2018-09-12] MEDS ORDERED: NS(*) 0.9% 50 ML BAG 50 ML ONE (20:00)
--- NOTE | 2018-09-12 21:23 | RADIOLOGY IMAGING REPORT ---
FACILITY: [facility] [place] PATIENT NAME: Abhijit Young : 1930 MR: [id number] V: [id number] EXAM DATE: ORDERING PHYSICIAN: LIZZETTE CANNON TECHNOLOGIST: Location: [facility] Patient: Abhijit Young : 1930 Visit/Account:[id number] Date of Sevice: 09/12/2018 MR BRAIN/BRAIN STEM W/O CON Comparisons: Head CT scan dated earlier same day. Additional pertinent history: Confusion TECHNIQUE: Multiplanar, multisequence brain MRI was performed without gadolinium contrast. FINDINGS: Disclaimer: Study severely limited by metallic artifact.. The sagittal midline structures are unremar kable. Moderate cerebral atrophy. Mild enlargement of the lateral and third ventricles. The fourth ve ntricle is within the midline. Multiple scattered foci of abnormal increased T2 signal within the periventricular and subcortical wh ite matter, nonspecific but likely representing small vessel ischemic change on a chronic basis. No o bvious mass effect. Diffusion weighted imaging is severely limited and basically nondiagnostic. No evidence of hemorrhage on the sagittal T1-weighted images of the axial T2-weighted images. The orbits are unremarkable. The paranasal sinuses and mastoid air cells are clear. Impression: 1. Study severely limited by metallic artifact. 2. Age-related changes described above. 3. No obvious acute intracranial pathology noted. Report Dictated By: Chad Segundo MD at 09/12/2018 9:14 PM Report E-Signed By: Chad Segundo MD at 09/12/2018 9:17 PM WSN:[id number]
--- NOTE | 2018-09-12 21:37 | RADIOLOGY IMAGING REPORT ---
FACILITY: [facility] [place] PATIENT NAME: Abhijit Young : 1930 MR: [id number] V: [id number] EXAM DATE: ORDERING PHYSICIAN: LIZZETTE CANNON TECHNOLOGIST: Location: [facility] Patient: Abhijit Young : 1930 Visit/Account:[id number] Date of Sevice: 09/12/2018 CT angiogram chest with contrast Indication: Shortness of breath. Elevated d-dimer. Comparison: 08/07/2018. Technique: Axial CT images are obtained through the chest after administration of 75 mL Isovue 370 IV contrast. Reformatted coronal and sagittal images were reviewed as well as coronal MIP images. One of the following dose optimization techniques was utilized in the performance of this exam: auto mated exposure control; adjustment of the mA and/or kV according to the patient's size; or use of an iterative reconstruction technique. Specific details can be referenced in the facility's radiology C T exam operational policy. FINDINGS: No evidence of filling defect within the pulmonary vasculature to suggest pulmonary embolus. Heart is normal size without pericardial effusion. Coronary artery calcination indications. Aorta jes ws mild atherosclerotic calcific changes without aneurysm. Aorta is not well opacified to assess for dissection. Lungs show mild dependent atelectasis. No consolidations, pleural effusion or pneumothorax. No discre te nodule or focal interstitial opacities. Airways are clear. Bony structures show no fractures or aggressive bony lesions. A subcentimeter sclerotic foci is again seen in the T7 vertebral body may represent a bone island. Left shoulder arthroplasty without sequel ae. The left kidney does show a cyst measuring 3.4 cm. The upper abdomen is otherwise unremarkable. IMPRESSION: 1. No evidence of pulmonary embolus. 2. No acute cardiothoracic abnormality 3. Left renal cyst. Report Dictated By: Gibran Dave at 09/12/2018 9:24 PM Report E-Signed By: Gibran Dave at 09/12/2018 9:32 PM WSN:[id number]
[2018-09-12 22:30] VITALS: BP_SYST 146; BP_SYST 164; BP_DIAS 115; BP_DIAS 77
[2018-09-12 23:00] VITALS: BP 146/77
[2018-09-12] MEDS ORDERED: NS(*) 0.9% 1000 ML BAG 1,000 ML IV PRN (23:12)
[2018-09-12] MEDS ORDERED: METOPROLOL TART 50 MG TAB PO SCH (23:15)
[2018-09-12] MEDS ORDERED: METHADONE 5 MG TAB PO SCH (23:15)
--- NOTE | 2018-09-12 23:35 | History & Physical ---
History of Present Illness Chief Complaint Dizzy, confused History of Present Illness 88yo male with PMHx significant for chronic pain, HTN, CAD. He reports onset of generalized weakness early today. It was accompanied by some blurring of his vis ion in left eye and some mild confusion. He has not had any KEYES. No visual loss. He denied any falls/head injury. He denied any CP/SOB/N/V/diarrhea/dysuria/frequency. He has not appreciated any fevers or chills. He has not had any rashes. He did start a new cream for pain in his neck prescribed by his pain management physician. He has continued his usual medications, which include methadone, Lortab 10/325. He is also prescribed hydoxyzine, dicyclomine. He was evaluated in the [facility]. He had CT scan of brain, MRI of brain, CT pulmonary angiogram, lab work. His d-dimer was slightly elevated, but CT pulmonary angiogram was negative for PE. His UA shows a few WBCs with positive leukocyte esterase, but negative bacteria and nitrite. Brain MRI is negative for acute pathology, but does have age related changes. His drug screen is positive for cannabinoids and opioids. He denies any known smoking or ingesting marijuana. He states his symptoms have significantly improved/resolved. He was recommended for admission. History Problems: (1) History of coronary artery disease Status: Chronic (2) HTN (hypertension) Status: Chronic (3) Chronic pain Status: Chronic (4) History of shoulder replacement Status: Resolved (5) Cervical spine fracture Status: Resolved (6) History of cochlear implant Status: Chronic Home Meds Active Scripts Ondansetron 4 Mg Odt (ONDANSETRON 4 MG ODT) 4 Mg Tab.rapdis, 4 MG PO Q6H PRN for NAUSEA/VOMITING, #20 TAB Prov:LIZZETTE CANNON 09/12/18 Diphenoxylate Hcl/Atropine (LOMOTIL TABLET) 1 Each Tablet, 1 EACH PO QID PRN for DIARRHEA, #20 TAB 0 Refills Prov:CARLOS OBRIEN MD 06/28/18 Reported Medications Metoprolol Tartrate (METOPROLOL TARTRATE) 50 Mg Tab, 1 TAB PO BID, TAB 06/28/18 Hydroxyzine Hcl (HYDROXYZINE HCL) 10 Mg/5 Ml Syrup, 10 MG PO 06/28/18 [Lortab 10/325MG] No Conflict Check, 1-2 TAB PO Q4-6H PRN for PAIN, #60 07/11/16 [Hydrocodone] No Conflict Check 07/11/16 Acetaminophen/Hydrocodone (HYDROCODON-ACETAMINOPHN 10-325) 1 Each Tab, 5 TAB PO DAILY, TAB 1 tab PO in the Morning, 2 Tab PO 1200, 1 tab PO @1700, 1 tab PO HS 07/03/16 Pantoprazole Sodium (PANTOPRAZOLE SODIUM) 40 Mg Tablet.dr, 40 MG PO QDAY, TAB.SR 07/03/16 Methadone Hcl (METHADONE HCL) 5 Mg Tab, 5 MG PO 0300 daily, TAB 07/03/16 Ranitidine Hcl (ZANTAC) 150 Mg Tablet, 150 MG PO EVENINGS, TAB 07/03/16 Dicyclomine Hcl (DICYCLOMINE HCL) 10 Mg Capsule, 10 MG PO HS, CAPSULE 07/03/16 Aspirin (ASPIRIN) 325 Mg Tablet, 0.5 TAB PO DAILY, TAB 03/24/14 Isosorbide Mononitrate (ISOSORBIDE MONONITRATE) 30 Mg Tab.er.24h, 30 MG PO DAILY 12/20/12 Cetirizine Hcl (Zyrtec) 10 Mg Tab, 10 MG PO QDAY 05/17/11 Allergies: Coded Allergies: ciprofloxacin (Verified Allergy, Intermediate, 09/12/18) naproxen (Verified Allergy, Intermediate, LOOPY, 09/12/18) naproxen sodium (Verified Adverse Reaction, Mild, knocked him out, 09/12/18) Other Social/Family Hx He currently lives alone. Hx Smoking: No Smoking Status: Never Smoker Exposure to Second Hand Smoke?: No Caffeine Intake: Coffee Caffeine/Cups Per Day: 6/DAY Hx Alcohol Use: Yes Hx Substance Use Disorder: No Social Drug Use: Never Review of Systems Constitutional: No Fever, No Chills Neurological: Confusion, Weakness, Dizziness; No Syncope Eyes: Vision Change; No Loss of Vision ENT: Hearing Loss (chronic) Cardiovascular: No Chest Pain, No Palpitations Respiratory: No Shortness of Breath, No Cough, No Wheezing Gastrointestinal: No Nausea, No Vomiting, No Diarrhea, No Constipation, No Hematemesis, No Hematochezia, No Melena, No Abdominal Pain Genitourinary: No Dysuria, No Hematuria, No Urinary Incontinence Musculoskeletal: Pain (chronic) Exam Vital Signs Vital Signs Date Time Temp Pulse Resp B/P (MAP) Pulse Ox O2 Delivery O2 Flow Rate FiO2 09/12/18 22:20 61 100 09/12/18 21:33 146/84 (104) 09/12/18 19:59 16 09/12/18 17:44 98.3 Room Air General Appearance: Alert, Awake Neuro: Other (Cranial nerves intact with decreased auditory acuity/Motor exam grossly normal) Eyes: PERRLA ENT: Oropharynx Clear, Other (tongue and uvula midline/mucosa slightly dry/cochlear implant on right) Neck: No Masses, Other (no bruits noted) Cardiovascular: Regular Rate and Rhythm (with soft systolic murmur), No Edema, No JVD Respiratory: Clear to Auscultation Chest: No Tenderness GI: Abd Soft and Non-Tender (BS present) : No CVA Tenderness Lymph: No Adenopathy Extremities: Warm, Pulses (radial/PT WNL), Perfused Integumentary: Generalized Fragile Skin Psych: Alert & Oriented X3 Medical Decision Making Data Points Result Diagram: 09/12/18 18109/12/181818 Item Value Date Time Urine Mucus Few /HPF 09/12/18 1828 Urine Hyaline Casts Many /LPF H 09/12/18 182 Urine Bacteria Negative /HPF 09/12/181827 Urine Squamous Epithelial Cells None /LPF 09/12/181827 Urine WBC 4 /HPF 09/12/18 1828 Urine RBC 10 /HPF 09/12/18 1828 Urine Leukocyte Esterase Negative 09/12/18 1828 Urine Urobilinogen 4.0 mg/dL H 09/12/18 1828 Urine Bilirubin Negative 09/12/18 1828 Urine Nitrite Negative 09/12/18 1828 Urine Blood Moderate 09/12/18 1828 Urine Ketones Trace mg/dL 09/12/188 Urine Glucose (UA) Negative mg/dL 09/12/181827 Urine Protein 30 mg/dL 09/12/188 Urine Specific [place] 1.024 09/12/188 Urine pH 5.0 pH 09/12/18 1828 Urine Clarity Clear 09/12/18 1828 Urine Color Yellow 09/12/18 1828 Urine Cannabinoids Screen Positive 7/5/19 1828 Urine Cocaine Screen Negative 09/12/18 1828 Urine Benzodiazepines Screen Negative 09/12/18 1828 Urine Amphetamines Screen Negative 09/12/18 1828 Urine Phencyclidine Screen Negative 09/12/18 1828 Ur Tricyclic Antidepressants Screen Negative 09/12/18 1828 Urine Barbiturates Screen Negative 09/12/18 1828 Urine Opiates Screen Positive 09/12/18 1828 Albumin 4.1 g/dl 09/12/18 181 Total Protein 7.1 g/dl 09/12/18 181 Troponin I < 0.012 ng/ml 09/12/18 181 Alkaline Phosphatase 63 U/L 09/12/18 181 Alanine Aminotransferase (ALT/SGPT) 27 U/L 09/12/18 181 Aspartate Amino Transf (AST/SGOT) 24 U/L 09/12/18 181 Total Bilirubin 0.9 mg/dl 09/12/181818 Calcium Level 9.5 mg/dl 09/12/181818 Carboxyhemoglobin 0.7 % 09/12/181818 D-Dimer Quantitative (PE/DVT) 0.84 ug/ml H 09/12/181818 EKG / Imaging Imaging PATIENT NAME: Abhijit Young : 1930 MR: [id number] V: [id number] EXAM DATE: ORDERING PHYSICIAN: LIZZETTE CANNON TECHNOLOGIST: Location: [facility] [place] Patient: Abhijit Young : 1930 Visit/Account:[id number] Date of Sevice: 09/12/2018 MR BRAIN/BRAIN STEM W/O CON Comparisons: Head CT scan dated earlier same day. Additional pertinent history: Confusion TECHNIQUE: Multiplanar, multisequence brain MRI was performed without gadolinium contrast. FINDINGS: Disclaimer: Study severely limited by metallic artifact.. The sagittal midline structures are unremarkable. Moderate cerebral atrophy. Mild enlargement of the lateral and third ventricles. The fourth ventricle is within the midline. Multiple scattered foci of abnormal increased T2 signal within the periventricular and subcortical white matter, nonspecific but likely representing small vessel ischemic change on a chronic basis. No obvious mass effect. Diffusion weighted imaging is severely limited and basically nondiagnostic. No evidence of hemorrhage on the sagittal T1-weighted images of the axial T2- weighted images. The orbits are unremarkable. The paranasal sinuses and mastoid air cells are clear. Impression: 1. Study severely limited by metallic artifact. 2. Age-related changes described above. 3. No obvious acute intracranial pathology noted. Report Dictated By: Chad Segundo MD at 09/12/2018 9:14 PM Report E-Signed By: Chad Segundo MD at 09/12/2018 9:17 PM WSN:[id number] PATIENT NAME: Abhijit Young : 1930 MR: [id number] V: [id number] EXAM DATE: ORDERING PHYSICIAN: LIZZETTE CANNON TECHNOLOGIST: Location: [facility] [place] Patient: Abhijit Young : 1930 Visit/Account:[id number] Date of Sevice: 09/12/2018 CT angiogram chest with contrast Indication: Shortness of breath. Elevated d-dimer. Comparison: 08/07/2018. Technique: Axial CT images are obtained through the chest after administration of 75 mL Isovue 370 IV contrast. Reformatted coronal and sagittal images were reviewed as well as coronal MIP images. One of the following dose optimization techniques was utilized in the performance of this exam: automated exposure control; adjustment of the mA and/or kV according to the patient's size; or use of an iterative reconstruction technique. Specific details can be referenced in the facility's radiology CT exam operational policy. FINDINGS: No evidence of filling defect within the pulmonary vasculature to suggest pulmonary embolus. Heart is normal size without pericardial effusion. Coronary artery calcination indications. Aorta shows mild atherosclerotic calcific changes without aneurysm. Aorta is not well opacified to assess for dissection. Lungs show mild dependent atelectasis. No consolidations, pleural effusion or pneumothorax. No discrete nodule or focal interstitial opacities. Airways are clear. Bony structures show no fractures or aggressive bony lesions. A subcentimeter sclerotic foci is again seen in the T7 vertebral body may represent a bone island. Left shoulder arthroplasty without sequelae. The left kidney does show a cyst measuring 3.4 cm. The upper abdomen is otherwise unremarkable. IMPRESSION: 1. No evidence of pulmonary embolus. 2. No acute cardiothoracic abnormality 3. Left renal cyst. Report Dictated By: Gibran Dave at 09/12/2018 9:24 PM Report E-Signed By: Gibran Dave at 09/12/2018 9:32 PM WSN:[id number] PATIENT NAME: Abhijit Young : 1930 MR: [id number] V: [id number] EXAM DATE: ORDERING PHYSICIAN: LIZZETTE CANNON TECHNOLOGIST: Location: [facility] [place] Patient: Abhijit Young : 1930 Visit/Account:[id number] Date of Sevice: 09/12/2018 Exam type: CHEST SINGLE AP History: dizziness Comparison: August 07, 2018. Findings: The lungs are free of acute effusions, infiltrates or edema. The cardiac silhouette remains stable. There are postsurgical changes of the left shoulder. IMPRESSION: 1. No acute cardiac pulmonary process is seen Report Dictated By: aTylor Aguirre MD at 09/12/2018 1:32 PM Report E-Signed By: Taylor Aguirre MD at 09/12/2018 1:33 PM WSN:[id number] PATIENT NAME: Abhijit Young : 1930 MR: [id number] V: [id number] EXAM DATE: [id number] ORDERING PHYSICIAN: LIZZETTE CANNON TECHNOLOGIST: Location: [facility] [place] Patient: Abhijit Young : 1930 Visit/Account:[id number] Date of Sevice: 09/12/2018 CT BRAIN NO CONTRAST History: dizziness TECHNIQUE: Contiguous angled axial images were obtained from the vertex through the base of the skull without intravenous contrast. One of the following dose optimization techniques was utilized in the performance of this exam: Automated exposure control; adjustment of the mA and/or kV according to the patient's size; or use of an iterative reconstruction technique. Specific details can be referenced in the facility's radiology CT exam operational policy. COMPARISON STUDIES: Head CT 08/07/2018 FINDINGS: Patient has an electronic hearing aid device implanted adjacent to the right calvarium. Scatter artifact partially obscures intracranial structures. Ventricles / sulci / fissures: Negative. Masses / hemorrhage / midline shift: Negative. Intra-axial findings: Normal. Extra-axial fluid collections: Negative. Intracranial vasculature and dural sinuses: Prominent calcific plaque noted in the left vertebral artery Skull base / calvarium: Negative. Scalp: negative Visualized mastoid air cells / paranasal sinuses: Well aerated. Orbits: Remote cataract's lens replacement Additional findings: Implanted electronic device along the right temporal bone with wires extending into the mastoid air cells unchanged. Please see previous CT regarding the old displaced dens fracture. This is beyond the [id number] of today's examination. IMPRESSION: No acute intracranial pathology identified. Report Dictated By: Alejandro Rodriguez MD at 09/12/2018 12:20 PM Report E-Signed By: Alejandro Rodriguez MD at 09/12/2018 12:28 PM WSN:[id number] Assessment and Plan Problems: (1) Dizziness Status: Acute Assessment & Plan: Improved. No obvious etiology. It does not appear he has had acute CVA, pneumonia, PE, metabolic abnormality. He does have mild pyuria and will check urine culture. He may have mild dehydration and will give gentle IV fluids. I suspect his medications may play a part in his symptoms. There is also a question of why his drug screen is positive for cannabinoids. Would like to try to reduce his centrally acting medications. Will need to continue his usual regimen of methadone and Lortab for now - to avoid withdrawal. I also advised him to follow up with his pain management physician to discuss his regimen. (2) Confusion Status: Acute Assessment & Plan: Resolved. See above. (3) Hypoxia Status: Acute Assessment & Plan: Mild. No obvious etiology as well. He has had borderline hypoxia in the past. It appears he may need the oxygen continuously. (4) HTN (hypertension) Status: Chronic Assessment & Plan: Will continue his metoprolol. Monitor BPs. (5) Chronic pain Status: Chronic Assessment & Plan: He has been managed with methadone 5mg PO AM, Noon, and at HS and Lortab 10/325 1.5 tabs in AM, one at Noon, and 0.5 at HS. He also had a new cream started recently of unknown composition. I suspect his pain medications may have a role in his symptoms (along with other centrally acting medications - hydroxyzine, dicyclomine). (6) History of coronary artery disease Status: Chronic Assessment & Plan: Will continue his aspirin, metoprolol, Imdur. Copies to: URIEL PHILLIPS MD ; Venous Thromboembolism Antithrombotics Is Pt On Any Antithrombotics?: Yes (aspirin) Exam Sepsis Risk: No Definite Risk OSVALDO COUGHLIN MD Sep 12, 2018 23:35
[2018-09-12] MEDS ORDERED: METHADONE 10 MG TAB ONE (23:37)
[2018-09-12] MEDS ORDERED: APAP/HYDROCODONE 325/7.5 TAB ONE (23:37)
[2018-09-13] MEDS ORDERED: METHADONE 10 MG TAB ONE (00:04)
[2018-09-13] MEDS: APAP/HYDROCODONE 325/10 TAB PO SCH ×5 (00:08→21:11)
[2018-09-13 04:59] VITALS: BP 150/97
[2018-09-13 05:12] LABS: PLATELET COUNT, AUTOMATED 217 K/uL (150-450)
--- NOTE | 2018-09-13 06:48 | Hospitalist Progress Note ---
Subjective Progress Notes Subjective Actually feels better with less fatigue and loss of strength. No dizziness or syncope. Denies headache. Physical Exam Vital Signs Date Time Temp Pulse Resp B/P (MAP) Pulse Ox O2 Delivery O2 Flow Rate FiO2 09/13/18 05:53 92 Nasal Cannula 2.0 09/13/18 04:59 98.0 95 18 150/97 (114) Intake and Output 09/13/18 07:02 Intake Total 1375 ml Balance 1375 ml Intake Oral 500 ml IV Total 875 ml # Voids 2 General Appearance: Alert, Awake, No Acute Distress, Afebrile Neuro: No Gross deficits ENT: Other (Hearing loss. ) Cardiovascular: Regular Rate and Rhythm, Other (S1S2 are soft. ) Respiratory: Clear to Auscultation GI: Soft and Non-Tender Psych: Alert & Oriented X3, Appropriate Mood & Affect Result Diagram: 09/13/18 0500 09/13/18 0500 Assessment and Plan Problems: (1) Dizziness Status: Acute Assessment & Plan: Improved. No obvious etiology but suspect medication side effects due to methadone, lortabs in addition to hydroxyzine, antihist., lomotil, etc. Does not appear he has had acute CVA, pneumonia, PE, metabolic abnormality. He does have mild pyuria. Urine culture pending. No antibiotics at this point. Creat down from 1.4 to 1.2 with gentle IV fluids. There is also a question of why his drug screen is positive for cannabinoids. Would like to try to reduce his centrally acting medications. Will need to continue his usual regimen of methadone and Lortab for now - to avoid withdrawal. Advised him to follow up with his pain management physician to discuss his regimen. PT will see today and evaluate for safety issues at home and if stable will send home tomorrow. (2) Confusion Status: Acute Assessment & Plan: Resolved. See above. (3) Hypoxia Status: Acute Assessment & Plan: Mild. No obvious etiology as well. He has had borderline hypoxia in the past. It appears he may need the oxygen continuously. (4) HTN (hypertension) Status: Chronic Assessment & Plan: Will continue his metoprolol. Monitor BPs. (5) Chronic pain Status: Chronic Assessment & Plan: He has been managed with methadone 5mg PO AM, Noon, and at HS and Lortab 10/325 1.5 tabs in AM, one at Noon, and 0.5 at HS. He also had a n ew cream started recently of unknown composition. I suspect his pain medications may have a role in his symptoms (along with other centrally acting medications - hydroxyzine, dicyclomine). (6) History of coronary artery disease Status: Chronic Assessment & Plan: Will continue his aspirin, metoprolol, Imdur. Tends to be bradycardic most of the time but is not symptomatic. Time Spent on Plan of Care: > 30 min Exam Sepsis Risk: No Definite Risk LYLE CORDOBA MD FACP Sep 13, 2018 06:48
[2018-09-13 07:11] VITALS: BP 148/75
[2018-09-13] MEDS: ASPIRIN 325 MG TAB PO SCH (08:49)
[2018-09-13] MEDS: ISOSORBIDE MONONITR 30MG TABCR PO SCH (08:50)
[2018-09-13] MEDS: PANTOPRAZOLE SOD 40 MG TABEC PO SCH (08:50)
[2018-09-13] MEDS ORDERED: METHADONE 10 MG TAB PO SCH (09:00)
[2018-09-13] MEDS ORDERED: HYDR-393 PO (10:08)
[2018-09-13] MEDS ORDERED: SPIR50TA33 PO (10:41)
[2018-09-13] MEDS ORDERED: HYDR10TA3 PO (10:41)
[2018-09-13] MEDS ORDERED: METH10 PO (10:41)
[2018-09-13 10:57] VITALS: BP 132/81
[2018-09-13 11:52] VITALS: BP 101/58
[2018-09-13] MEDS ORDERED: APAP/HYDROCODONE 325/10 TAB PO SCH (12:00)
--- NOTE | 2018-09-13 14:09 | NUR ---
Physical Therapy Impression PT eval completed. Pt sleeping in recliner upon PT arrival but agreeable to address ambulation and platform step in hallway. Pt notes one step to enter home and then all needs on one level. Pt states that he does not use a cane for balance and generally just holds onto furniture as needed. Pt feels that he is currently at his baseline for mobility, but demos a deviating gait pattern at times. Pt tolerated up/down platform step x 3 reps with cues for a safer pattern. Pt would benefit from [facility] PT services to address balance and safety with mobility in home, as well as to encourage an appropriate assistive device for his environment. Physical Therapy Goals 1. Pt to be modified indep with least restrictive device for sit to/from stand transfers 2. Pt to be modified indep for bed mobility and supine to/from sit trnsfrs 3. Pt to ambulate x 100' with baseline balance and utilize assistive device for improved safety. 4. Pt to tolerate up/down platform step with SBA/Modified indep to simulate entry to home. Patient's Goals
[2018-09-13 15:35] VITALS: BP 99/57
[2018-09-13 19:40] VITALS: BP 102/59
[2018-09-14] MEDS: APAP/HYDROCODONE 325/10 TAB PO SCH ×5 (00:12→21:33)
[2018-09-14] MEDS: METHADONE 10 MG TAB PO SCH ×2 (02:44→12:15)
[2018-09-14 02:47] VITALS: BP 140/87
--- NOTE | 2018-09-14 07:32 | Hospitalist Progress Note ---
Subjective Progress Notes Subjective Doing fairly well with being more alert and talkative. Still feels a little weak but that improving as well. He currently lives by himself and in my opinion, he needs assistance at home with meds, O2, diet, phys therapy, etc.. He is agreeable including a residential assisted living arrangement. Physical Exam Vital Signs Date Time Temp Pulse Resp B/P (MAP) Pulse Ox O2 Delivery O2 Flow Rate FiO2 09/14/18 04:04 61 09/14/18 02:47 98.2 17 140/87 (104) 89 Nasal Cannula 1.0 Intake and Output 09/14/18 07:02 Intake Total 1102 ml Balance 1102 ml Intake Oral 800 ml IV Total 302 ml # Voids 2 # Bowel Movements 1 General Appearance: Alert, Awake, No Acute Distress, Afebrile Cardiovascular: Regular Rate and Rhythm Respiratory: Clear to Auscultation Psych: Alert & Oriented X3, Appropriate Mood & Affect Result Diagram: 09/13/18 0500 09/13/18 0500 Assessment and Plan Problems: (1) Dizziness Status: Acute Assessment & Plan: Improved. No obvious etiology but suspect medication side effects due to methadone, lortabs in addition to hydroxyzine, antihist., lomotil, etc. Does not appear he has had acute CVA, pneumonia, PE, metabolic abnormality. He does have mild pyuria. Urine culture pending. No antibiotics at this point. Creat down from 1.4 to 1.2 with gentle IV fluids. There is also a question of why his drug screen is positive for cannabinoids. Would like to try to reduce his centrally acting medications. Will need to continue his usual regimen of methadone and Lortab for now - to avoid withdrawal. Advised him to follow up with his pain management physician to discuss his regimen. PT feels he is stable enough to be home but he will require assistance with meals, meds, PT, etc.. Will have rn social services see and make those arrangements. (2) Confusion Status: Acute Assessment & Plan: Resolved. See above. (3) Hypoxia Status: Acute Assessment & Plan: Mild. No obvious etiology as well. He has had borderline hypoxia in the past. It appears he may need the oxygen continuously. (4) HTN (hypertension) Status: Chronic Assessment & Plan: HR is frequently in the50's and occasionally in the 35- 59/min range. Given his symptoms and HR, will decrease metoprolol to 25 mf po bid. (5) Chronic pain Status: Chronic Assessment & Plan: He has been managed with methadone 5mg PO AM, Noon, and at HS and Lortab 10/325 1.5 tabs in AM, one at Noon, and 0.5 at HS. He also had a new cream started recently of unknown composition. I suspect his pain medications may have a role in his symptoms (along with other centrally acting medications - hydroxyzine, dicyclomine). (6) History of coronary artery disease Status: Chronic Assessment & Plan: Will continue his aspirin, metoprolol, Imdur. Tends to be bradycardic most of the time but is not symptomatic. Time Spent on Plan of Care: > 30 min Exam Sepsis Risk: No Definite Risk LYLE CORDOBA MD FACP Sep 14, 2018 07:32
[2018-09-14 08:00] VITALS: BP 138/100
[2018-09-14] MEDS: ASPIRIN 325 MG TAB PO SCH (09:01)
[2018-09-14] MEDS: ISOSORBIDE MONONITR 30MG TABCR PO SCH (09:01)
[2018-09-14] MEDS: PANTOPRAZOLE SOD 40 MG TABEC PO SCH (09:01)
[2018-09-14] MEDS: METOPROLOL TART 50 MG TAB PO SCH ×2 (09:01→21:34)
[2018-09-14 11:01] VITALS: BP 123/65
[2018-09-14 17:00] VITALS: BP 127/73
[2018-09-14] MEDS ORDERED: IOPAMIDOL 76% 100 ML INFUS BTL 100 ML ONE (17:25)
[2018-09-14] MEDS ORDERED: NS(*) 0.9% 50 ML BAG 50 ML ONE (17:25)
--- NOTE | 2018-09-14 18:33 | RADIOLOGY IMAGING REPORT ---
FACILITY: [facility] PATIENT NAME: Abhijit Young : 1930 MR: [id number] V: [id number] EXAM DATE: ORDERING PHYSICIAN: KELLY COUGHLIN TECHNOLOGIST: Location: [facility] [place] Patient: Abhijit Young : 1930 Visit/Account:[id number] Date of Sevice: 09/14/2018 EXAMINATION: Head CT without IV contrast Head CT with IV contrast HISTORY: Left-sided weakness. Left hemianopsia. COMPARISON: 09/12/2018. TECHNIQUE: Contiguous axial images were obtained from the skull base to the vertex before and after IV contrast. Sagittal and coronal reformatted images are also submitted. CONTRAST: 75 mL of IV Isovue-370 One of the following dose optimization techniques was utilized in the performance of this exam: Autom ated exposure control; adjustment of the mA and/or kV according to the patient's size; or use of an i terative reconstruction technique. Specific details can be referenced in the facility's radiology C T exam operational policy. FINDINGS: Brain and other intracranial structures: There is a new small hypoattenuating region in the left occ ipital lobe which is consistent with an acute infarct. The brain is partially obscured by streak art ifact from the right cochlear implant device. Mild generalized cerebral atrophy with corresponding m ild sulcal and ventricular prominence. The basal cisterns are patent. No midline shift or acute int racranial hemorrhage. No pathologic enhancement. No mass lesion. Calvarium / scalp: Right-sided cochlear implant. Skull base / visualized face: Right mastoidectomy. Visualized sinuses / orbits: Trace mucosal thickening in the ethmoid air cells and right frontal sin us. 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 These findings were discussed with KELLY COUGHLIN at 09/14/2018 6:18 PM. Report Dictated By: Kristian Cheng MD at 09/14/2018 6:13 PM Report E-Signed By: Kristian Cheng MD at 09/14/2018 6:27 PM WSN:[id number]
--- NOTE | 2018-09-14 18:49 | RADIOLOGY IMAGING REPORT ---
FACILITY: [facility] [place] PATIENT NAME: Abhijit Young : 1930 MR: [id number] V: [id number] EXAM DATE: ORDERING PHYSICIAN: KELLY COUGHLIN TECHNOLOGIST: Location: [facility] [place] Patient: Abhijit Young : 1930 Visit/Account:[id number] Date of Sevice: 09/14/2018 EXAMINATION: CTA of the Brain with IV contrast HISTORY: Left-sided weakness. Left hemianopsia. COMPARISON: None. TECHNIQUE: Overlapping thin sections were obtained during a bolus of IV contrast from the upper nec k through the upper cerebrum. Reconstruction of the source data set includes multiplanar 2D in the sa gittal and coronal planes, and 3D coronal thin slab MIP series. Sap Business Analyst images have been store d on PACS. CONTRAST: 75 mL of IV Isovue-370 One of the following dose optimization techniques was utilized in the performance of this exam: Autom ated exposure control; adjustment of the mA and/or kV according to the patient's size; or use of an i terative reconstruction technique. Specific details can be referenced in the facility's radiology C T exam operational policy. FINDINGS: Angiographic findings: Internal carotids: Calcified plaque mildly narrows the distal internal carotid arteries. Vertebrobasilar: The right vertebral artery terminates in PICA. The left vertebral artery is occlu ded slightly below the left C2 transverse foramen. The left vertebral artery is patent and from the left C1 transverse foramen to the V3/V4 junction. The proximal intracranial left vertebral artery belle s very little contrast filling. The distal intracranial left vertebral artery is patent and normal i n caliber and there is retrograde filling of this segment to the left PICA. The basilar artery is pa tent and normal in caliber. [place]: Negative. TIMOTHY circulation: Negative. MCA circulation: Negative. RADIATION CONTROL TECHNICIAN circulation: There is a moderate to severe focal stenosis in the P2 segment of the right survey superintendent ior cerebral artery Additional non-angiographic findings: Chronic anteriorly displaced fracture through the base of the dens, unchanged compared with previous CT examination on 08/07/2018. 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 The right vertebral artery terminates in PICA. These findings were discussed with KELLY COUGHLIN at 09/14/2018 6:25 PM. Report Dictated By: Kristian Cheng MD at 09/14/2018 6:27 PM Report E-Signed By: Kristian Cheng MD at 09/14/2018 6:43 PM WSN:[id number]
--- NOTE | 2018-09-14 18:50 | Miscellaneous Provider Note ---
Miscellaneous Provider Note Note Called to see patient with a change in status. He was complaining of some loss of vision in his L eye. He also noticed he could not read the clock. He also felt somewhat "heavy" in his L arm and leg. The [facility] stroke assessment was performed. The patient was noted to have loss of vision in his L eye. He also had some incoordination of his L foot compared to the R when doing heel to ivy testing but could actually perform the test fairly well. The [facility] stroke team was consulted and recommended a STAT CT of the brain and CTA. 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 The neurologist from [facility] recommended starting Plavix and continuing ASA at 81mg daily. He also recommended a fasting lipid profile, HgA1c and echocardiogram. He recommended allowing permissive HTN and only treating systolic BPs of 200 or greater. The patient is on metoprolol for CAD. Will continue as stopping it abruptly could cause additional issues. KELLY COUGHLIN MD Sep 14, 2018 18:50
[2018-09-14 19:08] VITALS: BP 115/73
[2018-09-14] MEDS: CLOPIDOGREL BISULFATE 75MG TAB PO SCH (20:05)
[2018-09-15] MEDS: APAP/HYDROCODONE 325/10 TAB PO SCH ×3 (00:24→11:19)
[2018-09-15 00:38] VITALS: BP 126/61
[2018-09-15 03:22] VITALS: BP 117/84
[2018-09-15] MEDS: METHADONE 10 MG TAB PO SCH ×2 (03:31→13:56)
[2018-09-15 06:56] VITALS: BP 136/77
[2018-09-15] MEDS: ISOSORBIDE MONONITR 30MG TABCR PO SCH (08:09)
[2018-09-15] MEDS: METOPROLOL TART 50 MG TAB PO SCH (08:09)
[2018-09-15] MEDS: CLOPIDOGREL BISULFATE 75MG TAB PO SCH (08:09)
[2018-09-15] MEDS: PANTOPRAZOLE SOD 40 MG TABEC PO SCH (08:10)
[2018-09-15] MEDS ORDERED: ASPIRIN 81 MG ENTERIC COATED PO SCH (09:00)
--- NOTE | 2018-09-15 10:26 | Hospitalist Progress Note ---
Subjective Progress Notes Subjective He reports visual changes are "about the same". No other complaints this AM. He is planning on moving with his son to [place] upon discharge. Physical Exam Vital Signs Date Time Temp Pulse Resp B/P (MAP) Pulse Ox O2 Delivery O2 Flow Rate FiO2 09/15/18 06:56 98.1 61 16 136/77 (96) 93 Nasal Cannula 0.5 Intake and Output 09/15/18 07:02 Intake Total 1820 ml Balance 1820 ml Intake Oral 1820 ml # Voids 4 General Appearance: Alert, Awake Neuro: Other (left hemianopsia unchanged) Result Diagram: 09/13/18 0500 09/13/18 0500 Assessment and Plan Problems: (1) Stroke Status: Acute Assessment & Plan: Involving left occipital lobe with resulting visual disturbance. 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 His right posterior cerebral artery does appear to have some narrowing as well. He has been started on aspirin and Plavix per [facility] Team recs. His symptoms are fairly static at this time. Will have PT/OT evaluate. He did have an echocardiogram approximately one month ago, which did not show any findings concerning for a source of emboli. We currently do not have an echocardiogram tech to do the echo as well. (2) Dizziness Status: Acute Assessment & Plan: Most likely due to the acute CVA, but could also be medication side effects due to methadone, Lortab in addition to hydroxyzine, antihistamine, Lomotil, etc. Does not appear he has pneumonia, PE, metabolic abnormality. He does have mild pyuria, but urine culture negative. No antib iotics at this point. Creat down from 1.4 to 1.2 with gentle IV fluids. There is also a question of why his drug screen is positive for cannabinoids. Would did to try to reduce his centrally acting medications. Will need to continue his usual regimen of methadone and Lortab for now - to avoid withdrawal. Advised him to follow up with his pain management physician to discuss his regimen. (3) Confusion Status: Acute Assessment & Plan: Appears resolved, most likely related to acute CVA. See above. (4) Hypoxia Status: Acute Assessment & Plan: Mild. No obvious etiology as well. He has had borderline hypoxia in the past. It appears he may need the oxygen continuously. (5) HTN (hypertension) Status: Chronic Assessment & Plan: HR is frequently in the 50's. Given his symptoms and HR, we did decrease metoprolol to 25mg PO bid. (6) Chronic pain Status: Chronic Assessment & Plan: He has been managed with methadone 5mg PO AM, Noon, and at HS and Lortab 10/325 1.5 tabs in AM, one at Noon, and 0.5 at HS. He also had a new cream started recently of unknown composition. I suspect his pain medications may have a role in his symptoms (along with other centrally acting medications - hydroxyzine, dicyclomine). (7) History of coronary artery disease Status: Chronic Assessment & Plan: Will continue his aspirin, metoprolol, Imdur. Beta ryan dose has been reduced slightly due to mild bradycardia. Exam Sepsis Risk: No Definite Risk OSVALDO COUGHLIN MD Sep 15, 2018 10:26
[2018-09-15] MEDS ORDERED: ASPI81TA86 PO (11:13)
[2018-09-15] MEDS ORDERED: CLOP75TA PO (11:13)
[2018-09-15] MEDS ORDERED: METO25TA93 PO (11:13)
--- NOTE | 2018-09-15 11:24 | Hospitalist Depart ---
Discharge Summary Reason for Hosp/Final Diag: (1) Stroke Status: Acute Hospital Course & Plan: Involving left occipital lobe with resulting visual disturbance. 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 His right posterior cerebral artery does appear to have some narrowing as well. He has been started on aspirin and Plavix per [facility] Team recommendations. His symptoms are fairly static at this time. PT/OT did evaluate him during his stay and felt he was stable for therapy as an outpatient. He did have an echocardiogram imer velasco one month ago, which did not show any findings concerning for a source of emboli. We currently do not have an echocardiogram tech to do the echo as well. We will try to arrange this as an outpatient if possible. He will follow up with Dr. Phillips. (2) Dizziness Status: Acute Hospital Course & Plan: Most likely due to the acute CVA, but could also be medication side effects due to methadone, Lortab in addition to hydroxyzine, antihistamine, Lomotil, etc. He does not appear to have a pneumonia, PE, metabolic abnormality. He does have mild pyuria, but urine culture negative. No antibiotics were started. His creatinine did improve from 1.4 to 1.2 with gentle IV fluids. His spironolactone was held/stopped. There is also a question of why his drug screen is positive for cannabinoids. We did to try to reduce his centrally acting medications (stopped hydroxyzine, Lomotil, dicyclomine, Zyrtec). Will need to continue his usual regimen of methadone and Lortab for now - to avoid withdrawal. Advised him to follow up with his pain management physician to discuss his regimen. (3) Confusion Status: Acute Hospital Course & Plan: Appears resolved, most likely related to acute CVA. See above. (4) Hypoxia Status: Acute Hospital Course & Plan: Mild. No obvious etiology as well. CT pulmonary angiogram was negative for PE/pneumonia. He has had borderline hypoxia in the past. It appears he may need the oxygen continuously. (5) HTN (hypertension) Status: Chronic Hospital Course & Plan: His HR is frequently in the 50s. Given his symptoms and HR, we did decrease metoprolol to 25mg PO bid. His HR during the remainder of his stay was in 60-70 range. (6) Chronic pain Status: Chronic Hospital Course & Plan: He has been managed with methadone 5mg PO AM, Noon, and at HS and Lortab 10 1.5 tabs in AM, one at Noon, and 0.5 at HS. He also had a new cream started recently of unknown composition. I suspect his pain medications may have had a role in his symptoms (along with other centrally acting medications - hydroxyzine, dicyclomine). (7) History of coronary artery disease Status: Chronic Hospital Course & Plan: Will continue his aspirin, metoprolol, Imdur. Beta ryan dose has been reduced slightly due to mild bradycardia. Departure Weight (Pounds): 122 Weight (Ounces): 8.0 Result Diagram: 09/13/18 0500 09/13/18 050 Item Value Date Time White Blood Count 7.5 k/uL 09/12/18 181 Hemoglobin 14.5 g/dL 09/12/18 181 Hematocrit 42.7 % 09/12/18 181 Platelet Count 277 K/uL 09/12/18 1819 Sodium Level 138 mmol/L 09/12/18 1819 Potassium Level 5.0 mmol/L 09/12/18 1819 Chloride Level 101 mmol/L 09/12/18 1819 Carbon Dioxide Level 22 mmol/L 09/12/18 181 Blood Urea Nitrogen 21 mg/dl 09/12/18 1819 Creatinine 1.40 mg/dl H 09/12/18 1819 Glomerular Filtration Rate Calc 47.7 09/12/18 181 Random Glucose 137 mg/dl H 09/12/18 1819 Calcium Level 9.5 mg/dl 09/12/18 1819 Total Bilirubin 0.9 mg/dl 09/12/18 1819 Aspartate Amino Transf (AST/SGOT) 24 U/L 09/12/18 181 Alanine Aminotransferase (ALT/SGPT) 27 U/L 09/12/18 181 Alkaline Phosphatase 63 U/L 09/12/18 181 Troponin I < 0.012 ng/ml 09/12/18 181 Total Protein 7.1 g/dl 09/12/18 1819 Albumin 4.1 g/dl 09/12/18 181 Troponin I < 0.012 ng/ml 09/13/18 0500 Cholesterol/HDL Ratio 4.5 09/15/18 0529 Cholesterol Ratio (LDL/HDL) 2.64 09/15/18 0529 Percent HDL Cholesterol 22.0 % 09/15/18 05 HDL Cholesterol 28 mg/dl 09/15/18 0529 VLDL Cholesterol 24 mg/dl 09/15/18 0529 LDL Cholesterol 74 mg/dl 09/15/18 0529 Cholesterol Level 126 mg/dl 09/15/18 0529 Triglycerides Level 120 mg/dl 09/15/18 0529 D-Dimer Quantitative (PE/DVT) 0.84 ug/ml H 09/12/18 1819 Urine Mucus Few /HPF 09/12/18 1828 Urine Hyaline Casts Many /LPF H 09/12/18 1828 Urine Bacteria Negative /HPF 09/12/18 1828 Urine Squamous Epithelial Cells None /LPF 09/12/18 1828 Urine WBC 4 /HPF 09/12/18 1828 Urine RBC 10 /HPF 09/12/18 1828 Urine Leukocyte Esterase Negative 09/12/18 1828 Urine Urobilinogen 4.0 mg/dL H 09/12/18 1828 Urine Bilirubin Negative 09/12/18 1828 Urine Nitrite Negative 09/12/18 1828 Urine Blood Moderate 09/12/18 1828 Urine Ketones Trace mg/dL 09/12/181827 Urine Glucose (UA) Negative mg/dL 09/12/181827 Urine Protein 30 mg/dL 09/12/188 Urine Specific [place] 1.024 09/12/18 1828 Urine pH 5.0 pH 09/12/18 1828 Urine Clarity Clear 09/12/18 1828 Urine Color Yellow 09/12/18 1828 Urine Opiates Screen Positive 09/12/18 1828 Urine Barbiturates Screen Negative 09/12/18 1828 Ur Tricyclic Antidepressants Screen Negative 09/12/18 1828 Urine Phencyclidine Screen Negative 09/12/18 1828 Urine Amphetamines Screen Negative 09/12/18 1828 Urine Benzodiazepines Screen Negative 09/12/18 1828 Urine Cocaine Screen Negative 09/12/18 1828 Urine Cannabinoids Screen Positive 09/12/188 Carboxyhemoglobin 0.7 % 09/12/181818 [facility] *LIVE* [address] [place] [address] MANUEL IBARRA M.D., DIRECTOR OF LABORATORY SERVICES JOSEF QUIGLEY M.D., PATHOLOGIST RUN DATE: 09/14/18 Specimen Inquiry Report PAGE 1 RUN TIME: 1134 PATIENT: ABHIJIT JORDAN ACCT: [id number] LOC: [facility] U: [id number] AGE/SX: 88/M ROOM: 2278 RE09/12/[address]: OSVALDO COUGHLIN MD : 1930 BED: 278 DIS: STATUS: ADM Forrest TLOC: SPEC #: [id number] KISHORE: 09/12/18 STATUS: COMP REQ #: [id number] RECD: 09/13/[address]: OSVALDO COUGHLIN MD SOURCE: [facility] ENTR: 09/12/[address] [facility] [address]: SPDESC: ORDERED: CULT URINE COMMENTS: Comments: please run on specimen obtained earlier in [facility] Thanks Procedure Result Verified URINE CULTURE Final 09/14/18-1134 <10,000 COL/ML MULTIPLE COLONY TYPES PRESENT NO PATHOGENS APPARENT -------- ---- Imaging PATIENT NAME: Abhijit Jordan : 1930 MR: [id number] V: [id number] EXAM DATE: [id number] ORDERING PHYSICIAN: LIZZETTE CANNON TECHNOLOGIST: Location: [facility] Patient: Abhijit Jordan : 1930 Visit/Account:[id number] Date of Sevice: 09/12/2018 Exam type: CHEST SINGLE AP History: dizziness Comparison: August 07, 2018. Findings: The lungs are free of acute effusions, infiltrates or edema. The cardiac silhouette remains stable. There are postsurgical changes of the left shoulder. IMPRESSION: 1. No acute cardiac pulmonary process is seen Report Dictated By: Taylor Aguirre MD at 09/12/2018 1:32 PM Report E-Signed By: Taylor Aguirre MD at 09/12/2018 1:33 PM WSN:[id number] NAME: Abhijit Jordan : 1930 MR: [id number] V: [id number] EXAM DATE: [id number] ORDERING PHYSICIAN: LIZZETTE CANNON TECHNOLOGIST: Location: [facility] Patient: Abhijit Jordan : 1930 Visit/Account:[id number] Date of Sevice: 09/12/2018 CT angiogram chest with contrast Indication: Shortness of breath. Elevated d-dimer. Comparison: 08/07/2018. Technique: Axial CT images are obtained through the chest after administration of 75 mL Isovue 370 IV contrast. Reformatted coronal and sagittal images were reviewed as well as coronal MIP images. One of the following dose optimization techniques was utilized in the performance of this exam: automated exposure control; adjustment of the mA and/or kV according to the patient's size; or use of an iterative reconstruction technique. Specific details can be referenced in the facility's radiology CT exam operational policy. FINDINGS: No evidence of filling defect within the pulmonary vasculature to suggest pulmonary embolus. Heart is normal size without pericardial effusion. Coronary artery calcination indications. Aorta shows mild atherosclerotic calcific changes without aneurysm. Aorta is not well opacified to assess for dissection. Lungs show mild dependent atelectasis. No consolidations, pleural effusion or pneumothorax. No discrete nodule or focal interstitial opacities. Airways are clear. Bony structures show no fractures or aggressive bony lesions. A subcentimeter sclerotic foci is again seen in the T7 vertebral body may represent a bone island. Left shoulder arthroplasty without sequelae. The left kidney does show a cyst measuring 3.4 cm. The upper abdomen is othe rwise unremarkable. IMPRESSION: 1. No evidence of pulmonary embolus. 2. No acute cardiothoracic abnormality 3. Left renal cyst. Report Dictated By: Gibran Dave at 09/12/2018 9:24 PM Report E-Signed By: Gibran Dave at 09/12/2018 9:32 PM WSN:[id number] PATIENT NAME: Abhijit Jordan : 1930 MR: [id number] V: [id number] EXAM DATE: ORDERING PHYSICIAN: LIZZETTE CANNON TECHNOLOGIST: Location: [facility] Patient: Abhijit Jordan : 1930 Visit/Account:[id number] Date of Sevice: 09/12/2018 MR BRAIN/BRAIN STEM W/O CON Comparisons: Head CT scan dated earlier same day. Additional pertinent history: Confusion TECHNIQUE: Multiplanar, multisequence brain MRI was performed without gadolinium contrast. FINDINGS: Disclaimer: Study severely limited by metallic artifact.. The sagittal midline structures are unremarkable. Moderate cerebral atrophy. Mild enlargement of the lateral and third ventricles. The fourth ventricle is within the midline. Multiple scattered foci of abnormal increased T2 signal within the p eriventricular and subcortical white matter, nonspecific but likely representing small vessel ischemic change on a chronic basis. No obvious mass effect. Diffusion weighted imaging is severely limited and basically nondiagnostic. No evidence of hemorrhage on the sagittal T1-weighted images of the axial T2- weighted images. The orbits are unremarkable. The paranasal sinuses and mastoid air cells are clear. Impression: 1. Study severely limited by metallic artifact. 2. Age-related changes described above. 3. No obvious acute intracranial pathology noted. Report Dictated By: Chad Segundo MD at 09/12/2018 9:14 PM Report E-Signed By: Chad Segundo MD at 09/12/2018 9:17 PM WSN:[id number] PATIENT NAME: Abhijit Jordan : 1930 MR: [id number] V: [id number] EXAM DATE: ORDERING PHYSICIAN: KELLY COUGHLIN TECHNOLOGIST: Location: [facility] Patient: Abhijit Jordan : 1930 Visit/Account:[id number] Date of Sevice: 09/14/2018 EXAMINATION: CTA of the Brain with IV contrast HISTORY: Left-sided weakness. Left hemianopsia. COMPARISON: None. TECHNIQUE: Overlapping thin sections were obtained during a bolus of IV contrast from the upper neck through the upper cerebrum. Reconstruction of the source data set includes multiplanar 2D in the sagittal and coronal planes, and 3D coronal thin slab MIP series. Implementation Advisor images have been stored on PACS. CONTRAST: 75 mL of IV Isovue-370 One of the following dose optimization techniques was utilized in the performance of this exam: Automated exposure control; adjustment of the mA and/or kV according to the patient's size; or use of an iterative recon struction technique. Specific details can be referenced in the facility's radiology CT exam operational policy. FINDINGS: Angiographic findings: Internal carotids: Calcified plaque mildly narrows the distal internal carotid arteries. Vertebrobasilar: The right vertebral artery terminates in PICA. The left vertebral artery is occluded slightly below the left C2 transverse foramen. The left vertebral artery is patent and from the left C1 transverse foramen to the V3/V4 junction. The proximal intracranial left vertebral artery has very little contrast filling. The distal intracranial left vertebral artery is patent and normal in caliber and there is retrograde filling of this segment to the left PICA. The basilar artery is patent and normal in caliber. [place] of [place]: Negative. TIMOTHY circulation: Negative. MCA circulation: Negative. DOCUMENTATION IMPROVEMENT SPECIALIST circulation: There is a moderate to severe focal stenosis in the P2 segment of the right posterior cerebral artery Additional non-angiographic findings: Chronic anteriorly displaced fracture through the base of the dens, unchanged compared with previous CT examination on 08/07/2018. IMPRESSION: There is occlusion of the left vertebral artery at the C2 level with diminished contrast filling in the V3 segment and very diminished contrast filling of the proximal intracranial segment of the left vertebral artery. 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 There is a focal moderate to severe stenosis of the P2 segment of the right posterior cerebral artery. The right vertebral artery terminates in PICA. These findings were discussed with KELLY COUGHLIN at 09/14/2018 6:25 PM. Report Dictated By: Kristian Cheng MD at 09/14/2018 6:27 PM Report E-Signed By: Kristian Cheng MD at 09/14/2018 6:43 PM WSN:[id number] PATIENT NAME: Abhijit Jordan : 1930 MR: [id number] V: [id number] EXAM DATE: [id number] ORDERING PHYSICIAN: KELLY COUGHLIN TECHNOLOGIST: Location: [facility] Patient: Abhijit Jordan : 1930 Visit/Account:[id number] Date of Sevice: 09/14/2018 EXAMINATION: Head CT without IV contrast Head CT with IV contrast HISTORY: Left-sided weakness. Left hemianopsia. COMPARISON: 09/12/2018. TECHNIQUE: Contiguous axial images were obtained from the skull base to the vertex before and after IV contrast. Sagittal and coronal reformatted images are also submitted. CONTRAST: 75 mL of IV Isovue-370 One of the following dose optimization techniques was utilized in the performance of this exam: Automated exposure control; adjustment of the mA and/or kV according to the patient's size; or use of an iterative reconstruction technique. Specific details can be referenced in the facility's radiology CT exam operational policy. FINDINGS: Brain and other intracranial structures: There is a new small hypoattenuating region in the left occipital lobe which is consistent with an acute infarct. The brain is partially obscured by streak artifact from the right cochlear implant device. Mild generalized cerebral atrophy with corresponding mild sulcal and ventricular prominence. The basal cisterns are patent. No midline shift or acute intracranial hemorrhage. No pathologic enhancement. No mass lesion. Calvarium / scalp: Right-sided cochlear implant. Skull base / visualized face: Right mastoidectomy. Visualized sinuses / orbits: Trace mucosal thickening in the ethmoid air cells and right frontal sinus. 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 These findings were discussed with KELLY COUGHLIN at 09/14/2018 6:18 PM. Report Dictated By: Kristian Cheng MD at 09/14/2018 6:13 PM Report E-Signed By: Kristian Cheng MD at 09/14/2018 6:27 PM WSN:[id number] EKG PATIENT NAME: ABHIJIT JORDAN : [id number] MR: [id number] V: [id number] EXAM DATE: ORDERING PHYSICIAN: LIZZETTE CANNON TECHNOLOGIST: Test Reason : DIZZINESS Blood Pressure : / mmHG Vent. Rate : 067 BPM Atrial Rate : 063 BPM P-R Int : 142 ms QRS Dur : 084 ms QT Int : 440 ms P-R-T Axes : 068 061 048 degrees QTc Int : 464 ms Sinus rhythm with occasional premature ventricular complexes and premature atrial complexes Possible left atrial enlargement Slightly prolonged QTc Nonspecific ST findings lateral leads Confirmed by OSVALDO COUGHLIN ([id number]) on 09/12/2018 8:43:02 PM Referred By: JANY Confirmed By:OSVALDO COUGHLIN Condition: Improved Discharge: Home, Self Care PT/OT Follow Up For: PT Evaluation and Treat, OT Evaluation and Treat Time Spent: > 30 min Discharge Instructions Home Meds Active Scripts Metoprolol Tartrate (METOPROLOL TARTRATE) 25 Mg Tablet, 1 TAB PO BID for 30 Days, #60 TAB 1 Refill Prov:OSVALDO COUGHLIN MD 09/15/18 Clopidogrel Bisulfate (CLOPIDOGREL) 75 Mg Tablet, 75 MG PO QDAY for 30 Days, #30 TAB 1 Refill Prov:OSVALDO COUGHLIN MD 09/15/18 Aspirin (ASPIRIN EC) 81 Mg Tablet.dr, 81 MG PO QDAY for 90 Days, #90 TAB 1 Refill Prov:OSVALDO COUGHLIN MD 09/15/18 Reported Medications Methadone Hcl (METHADONE HCL) 10 Mg Tab, 5 MG PO 1200, 0300, TAB 0.5 tab @ noon and 0.5 tab @ 0300 09/13/18 Acetaminophen/Hydrocodone (HYDROCODON-ACETAMINOPHN 10-325) 1 Each Tab, 5.5 EACH PO through the day, TAB 1.5 tab in AM, 1.5 tab at noon, 1 tab in evening, 1 tab at bedtime, 0.5 tab at midnight 09/13/18 Pantoprazole Sodium (PANTOPRAZOLE SODIUM) 40 Mg Tablet.dr, 40 MG PO QDAY, TAB.SR 07/03/16 Ranitidine Hcl (ZANTAC) 150 Mg Tablet, 150 MG PO EVENING, TAB 07/03/16 Isosorbide Mononitrate (ISOSORBIDE MONONITRATE) 30 Mg Tab.er.24h, 30 MG PO q evening 12/20/12 Discontinued Reported Medications Spironolactone (SPIRONOLACTONE) 50 Mg Tablet, 50 MG PO DAILY 09/13/18 Hydroxyzine Hcl (HYDROXYZINE HCL) 10 Mg Tablet, 10 MG PO DAILY 09/13/18 Metoprolol Tartrate (METOPROLOL TARTRATE) 50 Mg Tab, 1 TAB PO Q AM, TAB 06/28/18 Dicyclomine Hcl (DICYCLOMINE HCL) 10 Mg Capsule, 10 MG PO HS, CAPSULE 07/03/16 Aspirin (ASPIRIN) 325 Mg Tablet, 0.5 TAB PO DAILY, TAB 03/24/14 Cetirizine Hcl (Zyrtec) 10 Mg Tab, 10 MG PO QDAY 05/17/11 Hydroxyzine Hcl (HYDROXYZINE HCL) 10 Mg/5 Ml Syrup, 10 MG PO 06/28/18 [Lortab 10/325MG] No Conflict Check, 1-2 TAB PO Q4-6H PRN for PAIN, #60 07/11/16 [Hydrocodone] No Conflict Check 07/11/16 Acetaminophen/Hydrocodone (HYDROCODON-ACETAMINOPHN 10-325) 1 Each Tab, 5 TAB PO DAILY, TAB 1 tab PO in the Morning, 2 Tab PO 1200, 1 tab PO @1700, 1 tab PO HS 07/03/16 Methadone Hcl (METHADONE HCL) 5 Mg Tab, 5 MG PO 0300 daily, TAB 07/03/16 Discontinued Scripts Ondansetron 4 Mg Odt (ONDANSETRON 4 MG ODT) 4 Mg Tab.rapdis, 4 MG PO Q6H PRN for NAUSEA/VOMITING, #20 TAB Prov:LIZZETTE CANNON [facility] 09/12/18 Diphenoxylate Hcl/Atropine (LOMOTIL TABLET) 1 Each Tablet, 1 EACH PO QID PRN for DIARRHEA, #20 TAB 0 Refills Prov:CARLOS OBRIEN MD 06/28/18 Follow up Referrals: Family Practice @ [facility] with URIEL PHILLIPS MD Diet: Regular, Low Cholesterol & Sat Fat Activity: As Tolerated, With Walker, No Exertion Special Instructions: Home oxygen at 1L via nasal cannula continuouly. Follow up with Dr. Phillips in next 3-4 days. [facility] any problems. Copies to: URIEL PHILLIPS MD ; Venous Thromboembolism Antithrombotics Is Pt On Any Antithrombotics?: Yes (aspirin) OSVALDO COUGHLIN MD Sep 15, 2018 11:24
--- NOTE | 2018-09-15 11:55 | NUR ---
Physical Therapy Impression Pt safe to DC with the assistance of his son. Pt able to ambulate on room air with SO2 maintaining >88%. Recommend PT in [place]. Physical Therapy Goals 1. Pt to be modified indep with least restrictive device for sit to/from stand transfers 2. Pt to be modified indep for bed mobility and supine to/from sit trnsfrs 3. Pt to ambulate x 100' with baseline balance and utilize assistive device for improved safety. 4. Pt to tolerate up/down platform step with SBA/Modified indep to simulate entry to home. Patient's Goals
--- NOTE | 2018-09-15 13:24 | NUR ---
Occupational Therapy Impression SBA ambulation with RW in hallway. SBA toileting. SBA grooming standing sink front. Educated on visual impairment strategies, pt with good awareness. SpO2 WNL on room air. Recommend HH and follow-up with eye doctor concerning further eye therapy. Pt verbalized understanding and agreeable to plan. Pt safe to discharge with assist of son. Occupational Therapy Goals Patient's Goal
== END 2018-09-15 14:45 | disposition home or self-care (01) | DRG 66 ==
LOC: ER 17:51 → ICU 22:21 → MED 09-13 11:32 → OBSVTOIN 09-15
PROVIDERS: ADMIT Internal Medicine; ATTEND Internal Medicine
DX: I63.212 Cerebral infarction due to unspecified occlusion or stenosis of left vertebral artery (principal); R42 Dizziness and giddiness; T40.3X5A Adverse effect of methadone, initial encounter; T43.595A Adverse effect of other antipsychotics and neuroleptics, initial encounter; T47.6X5A Adverse effect of antidiarrheal drugs, initial encounter; T44.3X5A Adverse effect of other parasympatholytics [anticholinergics and antimuscarinics] and spasmolytics, initial encounter; T45.0X5A Adverse effect of antiallergic and antiemetic drugs, initial encounter; R09.02 Hypoxemia; I10 Essential (primary) hypertension; I25.10 Atherosclerotic heart disease of native coronary artery without angina pectoris; G89.29 Other chronic pain; Z96.21 Cochlear implant status
CPT/HCPCS: 36415; 70470; 70496; 70551; 71275; 80305; 81001; 82040; 82247; 82310; 82374; 82375; 82435; 82465; 82565; 82947; 83036; 83718; 84075; 84132; 84155; 84295; 84450; 84460; 84478; 84484; 84520; 85025; 85379; 87088; 96360; 96361; 97162; 97165; 99284; G0378; J7030; J7040; J7050; Q9967